=== PATIENT | female | born 1955 | race Caucasian/White ===

== ENCOUNTER 2018-10-04 09:48 | Inpatient (IN) | payer BC ==
--- NOTE | 2018-10-04 10:07 | ER Document Report ---
ED Medical Screen (RME) - General Chief Complaint: Abdominal Pain Stated Complaint: ABDOMINAL PAIN Time Seen by Provider: 10/04/18 09:59 Notes: 63-year-old female to the emergency department chief complaint of abdominal pain which has been getting worse over the last month. Located in the midline abdomen. Having bowel movements about once a week. No bloody stool. No black tarry stool. No vomiting of blood. No other major complaints at this time. Denies any medication. Denies any past medical history. Still has all of her organs. No prior abdominal surgeries. Patient does smoke. I have greeted and performed a rapid initial assessment of this patient. A comprehensive ED assessment and evaluation of the patient, analysis of test results and completion of the medical decision making process will be conducted by additional ED providers. TRAVEL OUTSIDE OF THE [place] IN LAST 30 DAYS: No - Related Data Allergies/Adverse Reactions: No Known Allergies Allergy (Verified 10/04/18 09:59) Past Medical History - Social History Frequency of alcohol use: None Drug Abuse: None Renal/ Medical History: Denies: Hx Peritoneal Dialysis Review of Systems - Review of Systems Notes: Review of systems positive for the following: Nausea, abdominal pain, weight loss Physical Exam - Vital signs Vitals: Temp Pulse Resp BP Pulse Ox 98.0 F 107 H 18 153/99 H 94 10/04/18 09:54 10/04/18 09:54 10/04/18 09:54 10/04/18 09:54 10/04/18 09:54 - Abdominal Inspection: Normal Distension: No distension Bowel sounds: Normal Tenderness: Tender - Epigastric tenderness Organomegaly: No organomegaly Course - Vital Signs Vital signs: Temp Pulse Resp BP Pulse Ox 98.0 F 107 H 18 153/99 H 94 10/04/18 09:54 10/04/18 09:54 10/04/18 09:54 10/04/18 09:54 10/04/18 09:54 Doctor's Discharge - Discharge Referrals: MAGED,NO [Primary Care Provider] - Follow up as needed
[2018-10-04] MEDS ORDERED: NORMAL SALINE 500 ML IV ONE (10:08)
[2018-10-04] MEDS ORDERED: KETOROLAC TROMETHAMINE INJ/PF 30 MG/1 ML SDV IV ONE (10:08)
[2018-10-04] MEDS ORDERED: FAMOTIDINE INJ/PF 20 MG/2 ML SDV IV ONE (10:08)
[2018-10-04] MEDS ORDERED: ONDANSETRON HCL INJ/PF 4 MG/2 ML SDV IV ONE (10:10)
[2018-10-04 10:55] LABS: ABSOLUTE EOSINOPHILS # (AUTO) 0.1 10^3/uL (0.0-0.6); ABSOLUTE LYMPHOCYTES (AUTO) 1.9 10^3/uL (0.5-4.7); ABSOLUTE MONOCYTES (AUTO) 1.4 10^3/uL (0.1-1.4); ABSOLUTE NEUT (AUTO) 7.1 10^3/uL (1.7-8.2); BASOPHILS % (AUTO) 0.4 % (0-2); EOSINOPHILS % (AUTO) 0.6 % (0-6); HEMATOCRIT 48.7 % (36.0-47.0); HEMOGLOBIN 16.3 g/dL (12.0-15.5); LYMPHOCYTES % (AUTO) 18.4 % (13-45); MEAN CORPUSCULAR HEMOGLOBIN 26.2 pg (27.0-33.4); MEAN CORPUSCULAR HGB CONC 33.5 g/dL (32.0-36.0); MEAN CORPUSCULAR VOLUME 78 fl (80-97); PLATELET COUNT 299 10^3/uL (150-450); RED BLOOD COUNT 6.22 10^6/uL (3.72-5.28); RED CELL DISTRIBUTION WIDTH 16.1 % (11.5-14.0); SEGMENTED NEUTROPHILS % (AUTO) 67.6 % (42-78); TOTAL CELLS COUNTED % (AUTO) 100 %; WHITE BLOOD COUNT 10.6 10^3/uL (4.0-10.5)
[2018-10-04 12:06] LABS: ALANINE AMINOTRANSFERASE 37 U/L (9-52); ALKALINE PHOSPHATASE 99 U/L (38-126); ANION GAP 12 (5-19); ASPARTATE AMINO TRANSFERASE 43 U/L (14-36); BILIRUBIN,DIRECT 0.4 mg/dL (0.0-0.4); BILIRUBIN,TOTAL 0.7 mg/dL (0.2-1.3); BLOOD UREA NITROGEN 13 mg/dL (7-20); CALCIUM 8.9 mg/dL (8.4-10.2); CARBON DIOXIDE 27 mmol/L (22-30); CHLORIDE 95 mmol/L (98-107); GLUCOSE 104 mg/dL (75-110); POTASSIUM 3.1 mmol/L (3.6-5.0); SODIUM 133.5 mmol/L (137-145)
[2018-10-04] MEDS ORDERED: METOCLOPRAMIDE HCL INJ/PF 10 MG/2 ML SDV IV ONE (12:28)
[2018-10-04] MEDS ORDERED: MORPHINE SULFATE 10 MG/ML INJ IV ONE (12:29)
--- NOTE | 2018-10-04 12:39 | ER Document Report ---
ED GI/ - General Chief Complaint: Abdominal Pain Stated Complaint: ABDOMINAL PAIN Time Seen by Provider: 10/04/18 09:59 Mode of Arrival: Ambulatory Information source: Patient Notes: Patient is an otherwise healthy 63-year-old female who presents to the emergency department with abdominal pain that started 6 months ago. Patient reports pain has been across her entire abdomen for 6 months with worsening significantly over the last month. Patient reports significant weight loss of at least 20-30 pounds. She reports that she is unable to hold any food down as every time she eats she vomits. Patient denies any fevers or diarrhea. States she had a normal bowel movement yesterday. Patient denies any medical history whatsoever however she states that she does not have a primary care provider and has not seen a doctor in many years. Patient denies any personal or family history of cancer. TRAVEL OUTSIDE OF THE [place] IN LAST 30 DAYS: No - Related Data Allergies/Adverse Reactions: No Known Allergies Allergy (Verified 10/04/18 09:59) Past Medical History - General Information source: Patient - Social History Smoking Status: Current Every Day Smoker Frequency of alcohol use: None Drug Abuse: None Family History: Reviewed & Not Pertinent Patient has suicidal ideation: No Patient has homicidal ideation: No - Medical History Medical History: Negative Renal/ Medical History: Denies: Hx Peritoneal Dialysis Surgical Hx: Negative - Immunizations Immunizations up to date: Yes Review of Systems - Review of Systems Constitutional: Weight loss EENT: No symptoms reported Cardiovascular: No symptoms reported Respiratory: No symptoms reported Gastrointestinal: Abdominal pain, Nausea, Vomiting Genitourinary: No symptoms reported Female Genitourinary: No symptoms reported Skin: No symptoms reported Hematologic/Lymphatic: No symptoms reported Neurological/Psychological: No symptoms reported Physical Exam - Vital signs Vitals: Temp Pulse Resp BP Pulse Ox 98.0 F 107 H 18 153/99 H 94 10/04/18 09:54 10/04/18 09:54 10/04/18 09:54 10/04/18 09:54 10/04/18 09:54 - Notes Notes: PHYSICAL EXAMINATION: GENERAL: Thin. HEAD: Atraumatic, normocephalic. EYES: Pupils equal round and reactive to light, extraocular movements intact, c onjunctiva are normal. ENT: Nares patent, oropharynx clear without exudates. Moist mucous membranes. NECK: Normal range of motion, supple without lymphadenopathy LUNGS: Breath sounds clear to auscultation bilaterally and equal. No wheezes rales or rhonchi. HEART: Regular rate and rhythm without murmurs ABDOMEN: Soft, nondistended abdomen. Generalized tenderness to palpation. Hypoactive bowel sounds. No guarding, no rebound. No masses appreciated. Female : No CVA tenderness. Musculoskeletal: Normal range of motion, no pitting or edema. No cyanosis. NEUROLOGICAL: Cranial nerves grossly intact. Normal speech, normal gait. Normal sensory, motor exams PSYCH: Normal mood, normal affect. SKIN: Warm, Dry, normal turgor, no rashes or lesions noted. Course - Re-evaluation Re-evalutation: Vital signs are stable. CBC is unremarkable. CMP with hypokalemia and hyponatremia. Patient's pain adequately managed with morphine. Patient is currently drinking oral contrast for abdomen pelvis CT. patient receiving normal saline to help correct the hyponatremia, will order potassium rider for potassium of 3.1. CT of the abdomen and pelvis with IV and oral contrast reveals a partial small bowel obstruction and a cecal mass that is possibly causing the obstruction. These findings were discussed with the patient. All of patient's questions were answered. Pain controlled with IV analgesia. Will order patient 0.5 mg of IV Ativan as patient has become very anxious regarding her health condition. Carcinoembryonic antigen was added on per the advice of Dr. Aaron. 10/04/18 17:[address] Vizcaino, general surgery for admission of this patient. 10/04/18 18:52 Dr. Vizcaino will admit the patient. I also consulted oncology and spoke to Dr. Vallejo who agrees to see the patient in the morning. - Vital Signs Vital signs: Temp Pulse Resp BP Pulse Ox 98.1 F 69 18 120/62 92 10/05/18 12:17 10/05/18 12:17 10/05/18 12:17 10/05/18 12:17 10/05/18 12:17 - Laboratory Result Diagrams: 10/05/18 06:41 10/05/18 06:41 Laboratory results interpreted by me: 10/04/18 10/04/18 10/04/18 10:25 11:40 16:00 WBC 10.6 H RBC 6.22 H Hgb 16.3 H Hct 48.7 H MCV 78 L MCH 26.2 L RDW 16.1 H Sodium 133.5 L Potassium 3.1 L Chloride 95 L AST 43 H Carcinoembryonic Ag 5.1 H Ur Leukocyte Esterase 10/04/18 16:00 WBC RBC Hgb Hct MCV MCH RDW Sodium Potassium Chloride AST Carcinoembryonic Ag Ur Leukocyte Esterase TRACE H Discharge - Discharge Clinical Impression: Hypokalemia, Hyponatremia Bowel obstruction Qualifiers: Intestinal obstruction type: unspecified Intestinal obstruction extent: unspecified extent Qualified Code(s): K56.609 - Unspecified intestinal obstruction, unspecified as to partial versus complete obstruction Abdominal pain Qualifiers: Abdominal location: unspecified location Qualified Code(s): R10.9 - Unspecified abdominal pain Abdominal mass Qualifiers: Abdominal location: unspecified location Qualified Code(s): R19.00 - Intra- abdominal and pelvic swelling, mass and lump, unspecified site Condition: Stable Disposition: ADMITTED INPATIENT Admitting Provider: Surgicalist Unit Admitted: Medical Floor
[2018-10-04] MEDS ORDERED: NORMAL SALINE 1000 ML 1,000 ML IV ONE ×4 (13:30→19:30)
--- NOTE | 2018-10-04 14:44 | RADIOLOGY REPORT (SQ) ---
EXAM DESCRIPTION: CT ABD/PELVIS WITH IV ORAL COMPLETED DATE/TIME: 10/04/2018 2:08 pm REASON FOR STUDY: abd pain, weight loss COMPARISON: None. TECHNIQUE: CT scan of the abdomen and pelvis performed using helical scanning technique with dynamic intravenous contrast injection. Oral contrast. Images reviewed with lung, soft tissue, and bone win dows. Reconstructed coronal and sagittal MPR images reviewed. Delayed images for evaluation of the ur inary system also acquired. All images stored on PACS. All CT scanners at this facility use dose modulation, iterative reconstruction, and/or weight based d osing when appropriate to reduce radiation dose to as low as reasonably achievable (ALARA). [facility]: Dose Right [facility]: CareDose [facility]: Dose Right [facility]: Teradose 4D [facility]: [employer] CONTRAST TYPE AND DOSE: contrast/concentration: Isovue 350.00 mg/ml; Total Contrast Delivered: 56.0 ml; Total Saline Delivered: 38.0 ml RENAL FUNCTION: BUN 13 creatinine 0.76 RADIATION DOSE: CT Rad equipment meets quality standard of care and radiation dose reduction techniq ues were employed. CTDIvol: 4.8 - 5.5 mGy. DLP: 527 mGy-cm.. LIMITATIONS: None. FINDINGS: LOWER CHEST: No significant findings. No nodules or infiltrates. LIVER: Normal size. No masses. No dilated ducts. SPLEEN: Normal size. No focal lesions. PANCREAS: No masses. No significant calcifications. No adjacent inflammation or peripancreatic fluid collections. Pancreatic duct not dilated. GALLBLADDER: A large dense gallstone is present. ADRENAL GLANDS: No significant masses or asymmetry. RIGHT KIDNEY AND URETER: No solid masses. No significant calcifications. No hydronephrosis or hyd roureter. LEFT KIDNEY AND URETER: No solid masses. No significant calcifications. No hydronephrosis or hydr oureter. AORTA AND VESSELS: No aneurysm. No dissection. Renal arteries, SMA, celiac without stenosis. RETROPERITONEUM: No retroperitoneal adenopathy, hemorrhage or masses. BOWEL AND PERITONEAL CAVITY: Distended fluid-filled small bowel. The cecum is distended. The rectum and distal sigmoid are distended. Cannot rule-out masslike wall thickening at the superior aspect o f the cecum. APPENDIX: Normal. PELVIS: No mass. No free fluid. Normal bladder. ABDOMINAL WALL: No masses. No hernias. BONES: No significant or acute findings. OTHER: No other significant finding. IMPRESSION: 1. Cannot exclude partial bowel obstruction secondary to a mass lesion at the superior aspect of the cecum in the ascending colon. 2. Cannot exclude an enteritis. 3. Cholelithiasis. TECHNICAL DOCUMENTATION: JOB ID: [id number] Quality ID # [id number]: Final reports with documentation of one or more dose reduction techniques (e.g., Au tomated exposure control, adjustment of the mA and/or kV according to patient size, use of iterative reconstruction technique) 2010 [employer]- All Rights Reserved Reading location - IP/workstation name: [email or web address]
[2018-10-04 16:33] LABS: APPEARANCE,URINE SLIGHTLY-CLOUDY; BILIRUBIN,URINE NEGATIVE (NEGATIVE); COLOR,URINE YELLOW; GLUCOSE, URINE NEGATIVE (NEGATIVE); KETONES,URINE NEGATIVE (NEGATIVE); LEUKOCYTE ESTERASE,URINE TRACE (NEGATIVE); NITRITE,URINE NEGATIVE (NEGATIVE); PROTEIN,URINE NEGATIVE (NEGATIVE); URINE SPECIFIC GRAVITY > 1.060; UROBILINOGEN,URINE NEGATIVE mg/dL (<2.0)
[2018-10-04] MEDS ORDERED: LORAZEPAM INJ 2 MG/1 ML VIAL IV ONE (16:44)
[2018-10-04] MEDS: POTASSI CL 20 MEQ/50 ML RIDER 20 MEQ/50 ML RTUPB IV SCH ×2 (17:52→20:20)
--- NOTE | 2018-10-04 18:47 | PDOC CONSULTATION ---
Consultation Consult Date: 10/04/18 Attending physician:: RANDY JACOBS Consult reason:: Newly noted cecal mass History of Present Illness Patient complains of: Nausea vomiting, diarrhea History of Present Illness: CLAUDETTE ELI is a 63 year old female who presents with a one-month history of severe nausea and vomiting, unable to keep anything down, prior to that she had about a 6-month history of severe diarrhea. Over that time. She is lost about 30 pounds. Here, she had CT of the abdomen pelvis done which indicates diste ntion of the small bowel, abnormality at the cecum concerning for mass, distention however also of the sigmoid and rectal area. There does not seem to be any organ involvement, no other adenopathy noted. She has not really seen physicians up to this point. It is been about 24 hours since she passed gas. It is been about 3 weeks since her last bowel movement. Past Medical History Medical History: None - [id number] Past Surgical History Past Surgical History: Reports: None Social History Smoking Status: Current Every Day Smoker Cigarettes Packs Per Day: 1 Number of Years Smokin Frequency of Alcohol Use: None Hx Recreational Drug Use: No Hx Prescription Drug Abuse: No - Advance Directive Resuscitation Status: Full Code Family History Family History: None Parental Family History Reviewed: Yes Children Family History Reviewed: Yes Sibling(s) Family History Reviewed.: Yes Medication/Allergy Home Medications: No Home Medications 10/04/18 Allergies/Adverse Reactions: No Known Allergies Allergy (Verified 10/04/18 09:59) Review of Systems Constitutional: PRESENT: anorexia, fatigue, weakness, weight loss Cardiovascular: ABSENT: chest pain, dyspnea on exertion, edema, orthropnea, palpitations Gastrointestinal: PRESENT: bloating, nausea, vomiting Genitourinary: ABSENT: dysuria, hematuria Musculoskeletal: ABSENT: joint swelling Neurological: ABSENT: abnormal gait, abnormal speech, confusion, dizziness, focal weakness, syncope Psychiatric: ABSENT: anxiety, depression, homidical ideation, suicidal ideation Physical Exam Vital Signs: Temp Pulse Resp BP Pulse Ox 98.0 F 107 H 24 H 156/98 H 96 10/04/18 09:54 10/04/18 09:54 10/04/18 17:33 10/04/18 17:33 10/04/18 17:33 Intake & Output 10/03/18 10/04/18 10/05/18 06:59 06:59 06:59 Intake Total 1500 Balance 1500 Weight 49 kg General appearance: PRESENT: no acute distress Head exam: PRESENT: atraumatic Mouth exam: PRESENT: dry mucosa Neck exam: ABSENT: carotid bruit, JVD, lymphadenopathy, thyromegaly Respiratory exam: PRESENT: clear to auscultation dianna. ABSENT: rales, rhonchi, wheezes Cardiovascular exam: PRESENT: RRR. ABSENT: diastolic murmur, rubs, systolic murmur GI/Abdominal exam: PRESENT: diminished bowel sounds Rectal exam: PRESENT: deferred Musculoskeletal exam: PRESENT: ambulatory Neurological exam: PRESENT: alert, awake, oriented to person, oriented to place, oriented to time, oriented to situation, CN II-XII grossly intact. ABSENT: motor sensory deficit Skin exam: PRESENT: dry Results Laboratory Results: 10/04/18 10:25 10/04/18 11:40 10/04/18 10/04/18 10/04/18 10:25 10:25 11:40 WBC 10.6 H RBC 6.22 H Hgb 16.3 H Hct 48.7 H MCV 78 L MCH 26.2 L MCHC 33.5 RDW 16.1 H Plt Count 299 Seg Neutrophils % 67.6 Lymphocytes % 18.4 Monocytes % 13.0 Eosinophils % 0.6 Basophils % 0.4 Absolute Neutrophils 7.1 Absolute Lymphocytes 1.9 Absolute Monocytes 1.4 Absolute Eosinophils 0.1 Absolute Basophils 0.0 Sodium Cancelled 133.5 L Potassium Cancelled 3.1 L Chloride Cancelled 95 L Carbon Dioxide Cancelled 27 Anion Gap Cancelled 12 BUN Cancelled 13 Creatinine Cancelled 0.76 Est GFR ( Amer) Cancelled > 60 Est GFR (Non-Af Amer) Cancelled > 60 Glucose Cancelled 104 Calcium Cancelled 8.9 Total Bilirubin Cancelled 0.7 AST Cancelled 43 H ALT Cancelled 37 Alkaline Phosphatase Cancelled 99 Total Protein Cancelled 7.0 Albumin Cancelled 4.0 Lipase Cancelled 49.0 Urine Color Urine Appearance Urine pH Ur Specific [place] Urine Protein Urine Glucose (UA) Urine Ketones Urine Blood Urine Nitrite Ur Leukocyte Esterase Urine WBC (Auto) Urine RBC (Auto) 10/04/18 16:00 WBC RBC Hgb Hct MCV MCH MCHC RDW Plt Count Seg Neutrophils % Lymphocytes % Monocytes % Eosinophils % Basophils % Absolute Neutrophils Absolute Lymphocytes Absolute Monocytes Absolute Eosinophils Absolute Basophils Sodium Potassium Chloride Carbon Dioxide Anion Gap BUN Creatinine Est GFR ( Amer) Est GFR (Non-Af Amer) Glucose Calcium Total Bilirubin AST ALT Alkaline Phosphatase Total Protein Albumin Lipase Urine Color YELLOW Urine Appearance SLIGHTLY-CLOUDY Urine pH 7.0 Ur Specific [place] > 1.060 Urine Protein NEGATIVE Urine Glucose (UA) NEGATIVE Urine Ketones NEGATIVE Urine Blood NEGATIVE Urine Nitrite NEGATIVE Ur Leukocyte Esterase TRACE H Urine WBC (Auto) 5 Urine RBC (Auto) 5 Impressions: Abdomen/Pelvis CT 10/04/18 00:00 IMPRESSION: 1. Cannot exclude partial bowel obstruction secondary to a mass lesion at the superior aspect of the cecum in the ascending colon. 2. Cannot exclude an enteritis. 3. Cholelithiasis. 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 Ultimately she would benefit from colonoscopy with biopsy. After hydration I will order CT of the chest to complete other staging and we would need to send a CEA as well. - Time Time Spent: Greater than 70 Minutes - Inpatient Certification Based on my medical assessment, after consideration of the patient's comorbidities, presenting symptoms, or acuity I expect that the services needed warrant INPATIENT care.: Yes I certify that my determination is in accordance with my understanding of Medicare's requirements for reasonable and necessary INPATIENT services [42 CFR 412.3e].: Yes Medical Necessity: Need For IV Fluids, Need for Surgery
[2018-10-04] MEDS ORDERED: ONDANSETRON HCL INJ/PF 4 MG/2 ML SDV IV PRN (19:17)
--- NOTE | 2018-10-04 19:17 | PDOC H&P ---
History of Present Illness Admission Date/PCP: 10/04/18 Patient complains of: weight loss and abdominal pain History of Present Illness: CLAUDETTE ELI is a 63 year old female with a 1-2 months of weight loss about 30 punds, porr appetite, recent onset of abdominal pain. She presented to clinic w ith above symptoms and CT scan A/P was done with large partially obstructing mass of ascending colon with partially distended small bowel. She no other medical issues. The patient denies hematochetia and her last bowel movement was 3 weeks ago. Past Surgical History Past Surgical History: Reports: None Social History Smoking Status: Current Every Day Smoker Cigarettes Packs Per Day: 1 Number of Years Smokin Frequency of Alcohol Use: None Hx Recreational Drug Use: No Hx Prescription Drug Abuse: No - Advance Directive Resuscitation Status: Full Code Family History Family History: Reviewed & Not Pertinent Parental Family History Reviewed: No Children Family History Reviewed: No Sibling(s) Family History Reviewed.: No Medication/Allergy Home Medications: No Home Medications 10/04/18 Allergies/Adverse Reactions: No Known Allergies Allergy (Verified 10/04/18 09:59) Physical Exam Vital Signs: Temp Pulse Resp BP Pulse Ox 98.0 F 107 H 24 H 156/98 H 96 10/04/18 09:54 10/04/18 09:54 10/04/18 17:33 10/04/18 17:33 10/04/18 17:33 Intake & Output 10/03/18 10/04/18 10/05/18 06:59 06:59 06:59 Intake Total 1500 Balance 1500 Weight 49 kg General appearance: PRESENT: no acute distress Head exam: PRESENT: atraumatic Eye exam: PRESENT: EOMI Mouth exam: PRESENT: dry mucosa, neck supple Teeth exam: PRESENT: poor dentation Neck exam: PRESENT: full ROM Respiratory exam: PRESENT: wheezes Cardiovascular exam: PRESENT: RRR GI/Abdominal exam: PRESENT: distended - minimally, soft, tenderness - diffuse upper abdominal Rectal exam: PRESENT: deferred Extremities exam: PRESENT: full ROM Musculoskeletal exam: PRESENT: full ROM Neurological exam: PRESENT: alert, altered Skin exam: PRESENT: warm Results Laboratory Results: 10/04/18 10:25 10/04/18 11:40 10/04/18 10/04/18 10/04/18 10:25 10:25 11:40 WBC 10.6 H RBC 6.22 H Hgb 16.3 H Hct 48.7 H MCV 78 L MCH 26.2 L MCHC 33.5 RDW 16.1 H Plt Count 299 Seg Neutrophils % 67.6 Lymphocytes % 18.4 Monocytes % 13.0 Eosinophils % 0.6 Basophils % 0.4 Absolute Neutrophils 7.1 Absolute Lymphocytes 1.9 Absolute Monocytes 1.4 Absolute Eosinophils 0.1 Absolute Basophils 0.0 Sodium Cancelled 133.5 L Potassium Cancelled 3.1 L Chloride Cancelled 95 L Carbon Dioxide Cancelled 27 Anion Gap Cancelled 12 BUN Cancelled 13 Creatinine Cancelled 0.76 Est GFR ( Amer) Cancelled > 60 Est GFR (Non-Af Amer) Cancelled > 60 Glucose Cancelled 104 Calcium Cancelled 8.9 Total Bilirubin Cancelled 0.7 AST Cancelled 43 H ALT Cancelled 37 Alkaline Phosphatase Cancelled 99 Total Protein Cancelled 7.0 Albumin Cancelled 4.0 Lipase Cancelled 49.0 Urine Color Urine Appearance Urine pH Ur Specific [place] Urine Protein Urine Glucose (UA) Urine Ketones Urine Blood Urine Nitrite Ur Leukocyte Esterase Urine WBC (Auto) Urine RBC (Auto) 10/04/18 16:00 WBC RBC Hgb Hct MCV MCH MCHC RDW Plt Count Seg Neutrophils % Lymphocytes % Monocytes % Eosinophils % Basophils % Absolute Neutrophils Absolute Lymphocytes Absolute Monocytes Absolute Eosinophils Absolute Basophils Sodium Potassium Chloride Carbon Dioxide Anion Gap BUN Creatinine Est GFR ( Amer) Est GFR (Non-Af Amer) Glucose Calcium Total Bilirubin AST ALT Alkaline Phosphatase Total Protein Albumin Lipase Urine Color YELLOW Urine Appearance SLIGHTLY-CLOUDY Urine pH 7.0 Ur Specific [place] > 1.060 Urine Protein NEGATIVE Urine Glucose (UA) NEGATIVE Urine Ketones NEGATIVE Urine Blood NEGATIVE Urine Nitrite NEGATIVE Ur Leukocyte Esterase TRACE H Urine WBC (Auto) 5 Urine RBC (Auto) 5 Impressions: Abdomen/Pelvis CT 10/04/18 00:00 IMPRESSION: 1. Cannot exclude partial bowel obstruction secondary to a mass lesion at the superior aspect of the cecum in the ascending colon. 2. Cannot exclude an enteritis. 3. Cholelithiasis. Assessment & Plan - Diagnosis (1) Weight loss Is this a current diagnosis for this admission?: Yes (2) Cecum mass Is this a current diagnosis for this admission?: Yes Plan: A/ Right colon mass partially obstructing the small bowel weight loss 30 pounds during 1-2 months severe constipation, last bowel movement 3 weeks ago hypokalemia P/ Admit NPO NGT Multiple Fleet enemas Colonoscopy in AM followed by right hemicolectomy and central line placement tomorrow Replace K EKG Procedures, risks, benefits, complications discussed with the patient, her questions were answered and she decided to proceed
[2018-10-04] MEDS ORDERED: PHARMACY COMMUNICATION ORDER MC NR (19:30)
[2018-10-04] MEDS: FAMOTIDINE INJ/PF 20 MG/2 ML SDV IV SCH (22:07)
[2018-10-04] MEDS: NA PHOS,M-B/NA PHOS,DI-BA (ADULT) 133 ML ENEMA PR SCH ×2 (23:05→23:24)
[2018-10-05 00:32] LABS: ANION GAP 5 (5-19); BLOOD UREA NITROGEN 11 mg/dL (7-20); CALCIUM 7.8 mg/dL (8.4-10.2); CARBON DIOXIDE 23 mmol/L (22-30); CHLORIDE 103 mmol/L (98-107); GLUCOSE 93 mg/dL (75-110); POTASSIUM 3.7 mmol/L (3.6-5.0); SODIUM 131.2 mmol/L (137-145)
[2018-10-05] MEDS: NA PHOS,M-B/NA PHOS,DI-BA (ADULT) 133 ML ENEMA PR SCH ×3 (00:46→03:49)
[2018-10-05] MEDS: POTASSIUM CHLORIDE 20 MEQ/50 ML RTU IV SCH ×2 (01:56→03:49)
[2018-10-05] MEDS ORDERED: CEFOXITIN SODIUM 2 GM in DEXTROSE 5%-WATER 100 ML IV PRN (05:00)
[2018-10-05 06:56] LABS: ABSOLUTE EOSINOPHILS # (AUTO) 0.1 10^3/uL (0.0-0.6); ABSOLUTE LYMPHOCYTES (AUTO) 1.4 10^3/uL (0.5-4.7); ABSOLUTE NEUT (AUTO) 3.4 10^3/uL (1.7-8.2); BASOPHILS % (AUTO) 0.7 % (0-2); EOSINOPHILS % (AUTO) 1.5 % (0-6); HEMATOCRIT 37.7 % (36.0-47.0); LYMPHOCYTES % (AUTO) 23.8 % (13-45); MEAN CORPUSCULAR HEMOGLOBIN 26.5 pg (27.0-33.4); MEAN CORPUSCULAR HGB CONC 33.9 g/dL (32.0-36.0); MEAN CORPUSCULAR VOLUME 78 fl (80-97); MONOCYTES % (AUTO) 16.5 % (3-13); PLATELET COUNT 171 10^3/uL (150-450); RED BLOOD COUNT 4.83 10^6/uL (3.72-5.28); RED CELL DISTRIBUTION WIDTH 15.4 % (11.5-14.0); SEGMENTED NEUTROPHILS % (AUTO) 57.5 % (42-78); TOTAL CELLS COUNTED % (AUTO) 100 %
[2018-10-05 06:57] LABS: HEMOGLOBIN 12.8 g/dL (12.0-15.5)
[2018-10-05 07:10] LABS: ANION GAP 5 (5-19); BLOOD UREA NITROGEN 9 mg/dL (7-20); CARBON DIOXIDE 22 mmol/L (22-30); CHLORIDE 109 mmol/L (98-107); GLUCOSE 85 mg/dL (75-110); POTASSIUM 4.4 mmol/L (3.6-5.0); SODIUM 135.8 mmol/L (137-145)
[2018-10-05] MEDS ORDERED: SUCCINYLCHOLINE CHLORIDE INJ 200 MG/10 ML VIAL ONE (08:11)
[2018-10-05] MEDS ORDERED: PHENYLEPHRINE HCL INJ/PF 10 MG/1 ML SDV ONE (08:11)
[2018-10-05] MEDS ORDERED: DEXAMETHASONE SOD PHOSPHATE INJ 4 MG/1 ML VIAL ONE (08:11)
[2018-10-05] MEDS ORDERED: ONDANSETRON HCL INJ/PF 4 MG/2 ML SDV ONE (08:11)
[2018-10-05] MEDS ORDERED: ROCURONIUM BROMIDE INJ 50 MG/5 ML VIAL IV ONE (08:11)
--- NOTE | 2018-10-05 08:18 | PDOC PROGRESS REPORT ---
Subjective Progress Note for:: 10/05/18 Subjective:: Patient feeling OK. She is anxious to have surgery done. No new questions today. Reason For Visit: RIGHT COLON CANCER Physical Exam Vital Signs: Temp Pulse Resp BP Pulse Ox 98.5 F 68 17 118/66 98 10/05/18 03:55 10/05/18 03:55 10/05/18 03:55 10/05/18 03:55 10/05/18 03:55 Intake & Output 10/04/18 10/05/18 10/06/18 06:59 06:59 06:59 Intake Total 1597 Balance 1597 Weight 19.8 kg General appearance: PRESENT: well-developed, well-nourished Head exam: PRESENT: normocephalic Respiratory exam: PRESENT: unlabored Extremities exam: ABSENT: pedal edema Neurological exam: PRESENT: alert, awake, oriented to person, oriented to place, oriented to time, oriented to situation Psychiatric exam: PRESENT: appropriate affect Skin exam: PRESENT: normal color Results Laboratory Results: 10/05/18 06:41 10/05/18 06:41 10/04/18 10/04/18 10/04/18 10:25 10:25 11:40 WBC 10.6 H RBC 6.22 H Hgb 16.3 H Hct 48.7 H MCV 78 L MCH 26.2 L MCHC 33.5 RDW 16.1 H Plt Count 299 Seg Neutrophils % 67.6 Lymphocytes % 18.4 Monocytes % 13.0 Eosinophils % 0.6 Basophils % 0.4 Absolute Neutrophils 7.1 Absolute Lymphocytes 1.9 Absolute Monocytes 1.4 Absolute Eosinophils 0.1 Absolute Basophils 0.0 Sodium Cancelled 133.5 L Potassium Cancelled 3.1 L Chloride Cancelled 95 L Carbon Dioxide Cancelled 27 Anion Gap Cancelled 12 BUN Cancelled 13 Creatinine Cancelled 0.76 Est GFR ( Amer) Cancelled > 60 Est GFR (Non-Af Amer) Cancelled > 60 Glucose Cancelled 104 Calcium Cancelled 8.9 Total Bilirubin Cancelled 0.7 AST Cancelled 43 H ALT Cancelled 37 Alkaline Phosphatase Cancelled 99 Total Protein Cancelled 7.0 Albumin Cancelled 4.0 Lipase Cancelled 49.0 Urine Color Urine Appearance Urine pH Ur Specific [place] Urine Protein Urine Glucose (UA) Urine Ketones Urine Blood Urine Nitrite Ur Leukocyte Esterase Urine WBC (Auto) Urine RBC (Auto) Blood Type Antibody Screen 10/04/18 10/04/18 10/05/18 16:00 20:00 00:02 WBC RBC Hgb Hct MCV MCH MCHC RDW Plt Count Seg Neutrophils % Lymphocytes % Monocytes % Eosinophils % Basophils % Absolute Neutrophils Absolute Lymphocytes Absolute Monocytes Absolute Eosinophils Absolute Basophils Sodium 131.2 L Potassium 3.7 Chloride 103 Carbon Dioxide 23 Anion Gap 5 BUN 11 Creatinine 0.56 Est GFR ( Amer) > 60 Est GFR (Non-Af Amer) > 60 Glucose 93 Calcium 7.8 L Total Bilirubin AST ALT Alkaline Phosphatase Total Protein Albumin Lipase Urine Color YELLOW Urine Appearance SLIGHTLY-CLOUDY Urine pH 7.0 Ur Specific Rock[place] > 1.060 Urine Protein NEGATIVE Urine Glucose (UA) NEGATIVE Urine Ketones NEGATIVE Urine Blood NEGATIVE Urine Nitrite NEGATIVE Ur Leukocyte Esterase TRACE H Urine WBC (Auto) 5 Urine RBC (Auto) 5 Blood Type O POSITIVE Antibody Screen NEGATIVE 10/05/18 10/05/18 06:41 06:41 WBC 6.0 RBC 4.83 Hgb 12.8 D Hct 37.7 MCV 78 L MCH 26.5 L MCHC 33.9 RDW 15.4 H Plt Count 171 Seg Neutrophils % 57.5 Lymphocytes % 23.8 Monocytes % 16.5 H Eosinophils % 1.5 Basophils % 0.7 Absolute Neutrophils 3.4 Absolute Lymphocytes 1.4 Absolute Monocytes 1.0 Absolute Eosinophils 0.1 Absolute Basophils 0.0 Sodium 135.8 L Potassium 4.4 Chloride 109 H Carbon Dioxide 22 Anion Gap 5 BUN 9 Creatinine 0.59 Est GFR ( Amer) > 60 Est GFR (Non-Af Amer) > 60 Glucose 85 Calcium 8.0 L Total Bilirubin AST ALT Alkaline Phosphatase Total Protein Albumin Lipase Urine Color Urine Appearance Urine pH Ur Specific [place] Urine Protein Urine Glucose (UA) Urine Ketones Urine Blood Urine Nitrite Ur Leukocyte Esterase Urine WBC (Auto) Urine RBC (Auto) Blood Type Antibody Screen Impressions: Abdomen/Pelvis CT 10/04/18 00:00 IMPRESSION: 1. Cannot exclude partial bowel obstruction secondary to a mass lesion at the superior aspect of the cecum in the ascending colon. 2. Cannot exclude an enteritis. 3. Cholelithiasis. Status: Image reviewed by me Assessment & Plan - Diagnosis (1) Cecum mass Is this a current diagnosis for this admission?: Yes Plan: For colonoscopy today with possible NG tube placement and central line. Her CEA was not significantly elevated. CT chest has been ordered. (2) Anemia Qualifiers: Anemia type: unspecified type Qualified Code(s): D64.9 - Anemia, unspecified Is this a current diagnosis for this admission?: Yes Plan: Her HGB dropped with hydration. She has a microcytosis. I suspect there is some iron deficiency due to chronic blood loss. I will order anemia panel today. Continue to monitor CBC. - Plan Summary Plan Summary: Patient was discussed with Dr. Vizcaino. All of patient's questions were answered. Will continue to follow.
[2018-10-05] MEDS: MORPHINE SULFATE 10 MG/ML INJ IV PRN (08:21)
[2018-10-05 08:46] LABS: ABSOLUTE RETICS # 0.046 10^6/uL (0.028-0.122); RETICULOCYTE COUNT (AUTO) 0.94 % (0.66-2.85)
[2018-10-05 09:03] LABS: IRON(TIBC) 33.4 ug/dL (37-170)
--- NOTE | 2018-10-05 09:24 | EKG REPORT ---
SEVERITY:- ABNORMAL ECG - SINUS RHYTHM NONSPECIFIC T ABNORMALITIES, ANTERIOR LEADS : Confirmed by: Bj Gonzalez 05-Oct-2018 09:22:16
[2018-10-05] MEDS: FAMOTIDINE INJ/PF 20 MG/2 ML SDV IV SCH ×3 (09:26→22:46)
[2018-10-05] MEDS ORDERED: CEFOXITIN 1 GM/D5W RTU 1 GM/50 ML RTUPB IV PRN (11:00)
[2018-10-05] MEDS ORDERED: ALBUTEROL SULFATE 0.083% NEB 2.5 MG/3 ML AMPUL NEB ONE (13:01)
[2018-10-05] MEDS ORDERED: EPHEDRINE SULFATE INJ 50 MG/1 ML AMPULE ONE (13:33)
[2018-10-05] MEDS ORDERED: MIDAZOLAM 2 MG/2 ML INJ ONE (13:33)
[2018-10-05] MEDS ORDERED: FENTANYL CITRATE INJ/PF 250 MCG/5 ML AMPULE ONE (13:33)
[2018-10-05] MEDS ORDERED: FENTANYL CITRATE INJ/PF 100 MCG/2 ML AMPUL ONE ×2 (13:34→14:51)
[2018-10-05] MEDS ORDERED: PROPOFOL INJ 200 MG/20 ML VIAL IV ONE (13:34)
[2018-10-05] MEDS ORDERED: HYDROMORPHONE HCL INJ/PF 2 MG/ML AMPULE ONE (13:34)
--- NOTE | 2018-10-05 14:57 | RADIOLOGY REPORT (SQ) ---
EXAM DESCRIPTION: CHEST SINGLE VIEW COMPLETED DATE/TIME: 10/05/2018 2:44 pm REASON FOR STUDY: STAT PORTABLE IN OR 1 FOR LINE PLCMT COMPARISON: None. EXAM PARAMETERS: NUMBER OF VIEWS: One view. TECHNIQUE: Single frontal radiographic view of the chest acquired. RADIATION DOSE: NA LIMITATIONS: None. FINDINGS: LUNGS AND PLEURA: No opacities, masses or pneumothorax. No pleural effusion. MEDIASTINUM AND HILAR STRUCTURES: No masses. Contour normal. HEART AND VASCULAR STRUCTURES: Heart normal in size. Normal vasculature. BONES: No acute findings. HARDWARE: Central line on the left side with the tip at the level of the superior vena cava. Tip of the NG tube at the level of the gastroesophageal junction. Tip of the endotracheal tube 3 cm proxima l to the tre. OTHER: No other significant finding. IMPRESSION: 1. LIFE LINES DESCRIBED. ADVANCEMENT OF THE NG TUBE BY APPROXIMATELY 5 CM WOULD IMPROVE POSITIONI NG. 2. NO PNEUMOTHORAX AFTER CENTRAL LINE PLACEMENT. TECHNICAL DOCUMENTATION: JOB ID: [id number] [employer]- All Rights Reserved Reading location - IP/workstation name: [facility]
[2018-10-05] MEDS ORDERED: BUPIVACAINE HCL 0.5%-EPI 1:200000 INJ/PF 30 ML VIAL ONE (15:40)
[2018-10-05] MEDS ORDERED: ACETAMINOPHEN 1,000 MG/100 ML RTUPB IV ONE (15:41)
[2018-10-05] MEDS ORDERED: SUGAMMADEX SODIUM 200 MG/2 ML SDV IV ONE (17:14)
[2018-10-05] MEDS ORDERED: PROMETHAZINE HCL INJ 25 MG/1 ML VIAL IV PRN (18:50)
[2018-10-05] MEDS ORDERED: DIPHENHYDRAMINE HCL 50 MG/ML VIAL IV PRN (18:50)
[2018-10-05] MEDS ORDERED: FENTANYL CITRATE INJ/PF 100 MCG/2 ML AMPUL IV PRN ×3 (18:50)
[2018-10-05] MEDS ORDERED: MEPERIDINE HCL/PF INJ 25 MG/1 ML DISP.SYRIN IV PRN (18:50)
--- NOTE | 2018-10-05 19:22 | RADIOLOGY REPORT (SQ) ---
EXAM DESCRIPTION: CHEST SINGLE VIEW COMPLETED DATE/TIME: 10/05/2018 7:01 pm REASON FOR STUDY: s/p left attempted subclavian CVL COMPARISON: None. EXAM PARAMETERS: NUMBER OF VIEWS: One view. TECHNIQUE: Single frontal radiographic view of the chest acquired. RADIATION DOSE: NA LIMITATIONS: None. FINDINGS: LUNGS AND PLEURA: No opacities, masses or pneumothorax. No pleural effusion. MEDIASTINUM AND HILAR STRUCTURES: No masses. Contour normal. HEART AND VASCULAR STRUCTURES: Heart normal in size. Normal vasculature. BONES: No acute findings. HARDWARE: Left internal jugular catheter. NG tube extends to the stomach. OTHER: There is some free air beneath the diaphragms in this postsurgical patient. IMPRESSION: NO ACUTE RADIOGRAPHIC FINDING IN THE CHEST. TECHNICAL DOCUMENTATION: JOB ID: [id number] [employer]- All Rights Reserved Reading location - IP/workstation name: [email or web address]
--- NOTE | 2018-10-05 19:23 | Operative Report ---
Nonrecallable Operative Report DATE OF SURGERY: 10/05/18 PREOPERATIVE DIAGNOSIS: right colon mass, weight loss, severe constipation POSTOPERATIVE DIAGNOSIS: same OPERATION: 1) attempted Left subclavian vein CVl placment. 2) Left IJ vein CVL placement. 3) colonoscopy to right colon mass. 4) right hemicolectomy SURGEON: CYNDIE HERRERA ANESTHESIA: GA - plus 30 mL 0.5% marcaine with epinephrine TISSUE REMOVED OR ALTERED: right hemicolectomy specimen COMPLICATIONS: none ESTIMATED BLOOD LOSS: < 50 mL INTRAOPERATIVE FINDINGS: large tumoral mass right ascending colon
[2018-10-05] MEDS ORDERED: GLUCAGON,HUMAN RECOMB 1 MG INJ SUBCUT PRN (19:29)
[2018-10-05] MEDS ORDERED: DEXTROSE 50%-WATER 25 GM/50 ML DISP.SYRIN IV PRN ×2 (19:29)
[2018-10-05] MEDS ORDERED: DEXTROSE 40% GEL 15 GM TUBE PO PRN ×2 (19:29)
[2018-10-05] MEDS: ACETAMINOPHEN 1,000 MG/100 ML RTUPB IV SCH (22:38)
[2018-10-05] MEDS: CEFOXITIN 1 GM/D5W RTU 1 GM/50 ML RTUPB IV SCH (23:38)
[2018-10-06] MEDS: MORPHINE SULFATE 10 MG/ML INJ IV PRN ×2 (03:47→06:50)
[2018-10-06] MEDS: CEFOXITIN 1 GM/D5W RTU 1 GM/50 ML RTUPB IV SCH ×3 (06:33→22:10)
[2018-10-06 07:17] LABS: ABSOLUTE LYMPHOCYTES (AUTO) 1.3 10^3/uL (0.5-4.7); ABSOLUTE MONOCYTES (AUTO) 1.1 10^3/uL (0.1-1.4); BASOPHILS % (AUTO) 0.1 % (0-2); EOSINOPHILS % (AUTO) 0.1 % (0-6); HEMATOCRIT 35.5 % (36.0-47.0); HEMOGLOBIN 11.9 g/dL (12.0-15.5); LYMPHOCYTES % (AUTO) 10.1 % (13-45); MEAN CORPUSCULAR HEMOGLOBIN 26.2 pg (27.0-33.4); MEAN CORPUSCULAR HGB CONC 33.6 g/dL (32.0-36.0); MEAN CORPUSCULAR VOLUME 78 fl (80-97); MONOCYTES % (AUTO) 8.9 % (3-13); PLATELET COUNT 172 10^3/uL (150-450); RED BLOOD COUNT 4.55 10^6/uL (3.72-5.28); RED CELL DISTRIBUTION WIDTH 15.8 % (11.5-14.0); SEGMENTED NEUTROPHILS % (AUTO) 80.8 % (42-78); TOTAL CELLS COUNTED % (AUTO) 100 %
[2018-10-06 07:27] LABS: WHITE BLOOD COUNT 12.4 10^3/uL (4.0-10.5)
[2018-10-06 07:32] LABS: BLOOD UREA NITROGEN 8 mg/dL (7-20); CALCIUM 7.9 mg/dL (8.4-10.2); CHLORIDE 108 mmol/L (98-107); GLUCOSE 126 mg/dL (75-110)
[2018-10-06 07:38] LABS: CARBON DIOXIDE 25 mmol/L (22-30); SODIUM 134.4 mmol/L (137-145)
[2018-10-06 07:50] LABS: ANION GAP 1 (5-19)
--- NOTE | 2018-10-06 08:38 | PDOC PROGRESS REPORT ---
Subjective Progress Note for:: 10/06/18 Subjective:: Status post surgery, patient doing okay this morning would like to know when the NG tube can come out. Reason For Visit: RIGHT COLON CANCER Physical Exam Vital Signs: Temp Pulse Resp BP Pulse Ox 98.1 F 88 16 107/59 L 94 10/06/18 05:00 10/06/18 05:00 10/06/18 05:00 10/06/18 05:00 10/06/18 05:00 Intake & Output 10/05/18 10/06/18 10/07/18 06:59 06:59 06:59 Intake Total 1597 6650 45 Output Total 1260 Balance 1597 5390 45 Weight 19.8 kg 52 kg General appearance: PRESENT: no acute distress, well-developed, well-nourished Head exam: PRESENT: atraumatic, normocephalic Eye exam: PRESENT: conjunctiva pink, EOMI, PERRLA. ABSENT: scleral icterus Ear exam: PRESENT: normal external ear exam Mouth exam: PRESENT: moist, tongue midline Neck exam: ABSENT: carotid bruit, JVD, lymphadenopathy, thyromegaly Respiratory exam: PRESENT: clear to auscultation dianna. ABSENT: rales, rhonchi, wheezes Cardiovascular exam: PRESENT: RRR. ABSENT: diastolic murmur, rubs, systolic murmur Pulses: PRESENT: normal dorsalis pedis pul Vascular exam: PRESENT: normal capillary refill GI/Abdominal exam: PRESENT: normal bowel sounds, soft. ABSENT: distended, guarding, mass, organolmegaly, rebound, tenderness Rectal exam: PRESENT: deferred Extremities exam: PRESENT: full ROM. ABSENT: calf tenderness, clubbing, pedal edema Neurological exam: PRESENT: alert, awake, oriented to person, oriented to place, oriented to time, oriented to situation, CN II-XII grossly intact. ABSENT: motor sensory deficit Psychiatric exam: PRESENT: appropriate affect, normal mood. ABSENT: homicidal ideation, suicidal ideation Skin exam: PRESENT: dry, intact, warm. ABSENT: cyanosis, rash Results Laboratory Results: 10/06/18 06:40 10/06/18 06:40 10/05/18 10/05/18 10/06/18 06:41 06:41 06:40 WBC 12.4 H D RBC 4.55 Hgb 11.9 L Hct 35.5 L MCV 78 L MCH 26.2 L MCHC 33.6 RDW 15.8 H Plt Count 172 Seg Neutrophils % 80.8 H Lymphocytes % 10.1 L Monocytes % 8.9 Eosinophils % 0.1 Basophils % 0.1 Absolute Neutrophils 10.0 H Absolute Lymphocytes 1.3 Absolute Monocytes 1.1 Absolute Eosinophils 0.0 Absolute Basophils 0.0 Retic Count (auto) 0.94 Absolute Retic 0.046 Sodium Potassium Chloride Carbon Dioxide Anion Gap BUN Creatinine Est GFR ( Amer) Est GFR (Non-Af Amer) Glucose Calcium Iron 33.4 L TIBC 295 % Saturation 11 Ferritin 18.90 Vitamin B12 473.0 Folate 11.00 10/06/18 06:40 WBC RBC Hgb Hct MCV MCH MCHC RDW Plt Count Seg Neutrophils % Lymphocytes % Monocytes % Eosinophils % Basophils % Absolute Neutrophils Absolute Lymphocytes Absolute Monocytes Absolute Eosinophils Absolute Basophils Retic Count (auto) Absolute Retic Sodium 134.4 L Potassium 4.0 Chloride 108 H Carbon Dioxide 25 Anion Gap 1 L BUN 8 Creatinine 0.56 Est GFR ( Amer) > 60 Est GFR (Non-Af Amer) > 60 Glucose 126 H Calcium 7.9 L Iron TIBC % Saturation Ferritin Vitamin B12 Folate Impressions: Abdomen/Pelvis CT 10/04/18 00:00 IMPRESSION: 1. Cannot exclude partial bowel obstruction secondary to a mass lesion at the superior aspect of the cecum in the ascending colon. 2. Cannot exclude an enteritis. 3. Cholelithiasis. Chest X-Ray 10/05/18 00:00 IMPRESSION: NO ACUTE RADIOGRAPHIC FINDING IN THE CHEST. Assessment & Plan - Diagnosis (1) Cecum mass Is this a current diagnosis for this admission?: Yes Plan: Concerning for primary colon cancer, status post colectomy, awaiting pathology, will follow closely. - Time Time Spent with patient: 35 or more minutes
--- NOTE | 2018-10-06 09:19 | PDOC PROGRESS REPORT ---
Subjective Progress Note for:: 10/06/18 Subjective:: No complaints, pain reasonably tolerated; nasogastric tube and Pickens catheter still in position Reason For Visit: RIGHT COLON CANCER Physical Exam Vital Signs: Temp Pulse Resp BP Pulse Ox 98.1 F 88 16 107/59 L 94 10/06/18 05:00 10/06/18 05:00 10/06/18 05:00 10/06/18 05:00 10/06/18 05:00 Intake & Output 10/05/18 10/06/18 10/07/18 06:59 06:59 06:59 Intake Total 1597 6650 45 Output Total 1260 Balance 1597 5390 45 Weight 19.8 kg 52 kg General appearance: PRESENT: no acute distress, other - Minimal drainage from NG tube GI/Abdominal exam: PRESENT: other - Soft, appropriate incisional tenderness. No distention, no peritoneal signs Results Laboratory Results: 10/06/18 06:40 10/06/18 06:40 10/05/18 10/06/18 10/06/18 06:41 06:40 06:40 WBC 12.4 H D RBC 4.55 Hgb 11.9 L Hct 35.5 L MCV 78 L MCH 26.2 L MCHC 33.6 RDW 15.8 H Plt Count 172 Seg Neutrophils % 80.8 H Lymphocytes % 10.1 L Monocytes % 8.9 Eosinophils % 0.1 Basophils % 0.1 Absolute Neutrophils 10.0 H Absolute Lymphocytes 1.3 Absolute Monocytes 1.1 Absolute Eosinophils 0.0 Absolute Basophils 0.0 Sodium 134.4 L Potassium 4.0 Chloride 108 H Carbon Dioxide 25 Anion Gap 1 L BUN 8 Creatinine 0.56 Est GFR ( Amer) > 60 Est GFR (Non-Af Amer) > 60 Glucose 126 H Calcium 7.9 L Iron 33.4 L TIBC 295 % Saturation 11 Ferritin 18.90 Vitamin B12 473.0 Folate 11.00 Impressions: Abdomen/Pelvis CT 10/04/18 00:00 IMPRESSION: 1. Cannot exclude partial bowel obstruction secondary to a mass lesion at the superior aspect of the cecum in the ascending colon. 2. Cannot exclude an enteritis. 3. Cholelithiasis. Chest X-Ray 10/05/18 00:00 IMPRESSION: NO ACUTE RADIOGRAPHIC FINDING IN THE CHEST. Assessment & Plan - Diagnosis (1) Cecum mass Is this a current diagnosis for this admission?: Yes Plan: Impression: Status post exploratory laparotomy, right hemicolectomy stapled anastomosis for a near obstructing right colonic carcinoma, postop day 1, doing well, no complications thus far Recommendations: 1. We will clamped and likely DC NG tube 2. Out of bed into chair 3. Start IV acetaminophen and IV Toradol, reduce narcotic needs 4. Incentive spirometer 5. May be prepared for Pickens catheter removal later today. 6. Labs reviewed; no indication for intervention
[2018-10-06] MEDS: ACETAMINOPHEN 1,000 MG/100 ML RTUPB IV SCH (10:01)
[2018-10-06] MEDS: FAMOTIDINE INJ/PF 20 MG/2 ML SDV IV SCH ×3 (10:01→22:11)
[2018-10-06] MEDS: NORMAL SALINE 1000 ML 1,000 ML IV PRN ×2 (10:07→20:54)
--- NOTE | 2018-10-06 12:31 | OPERATIVE REPORT E ---
Operative Report NAME: CLAUDETTE ELI : 1955 AGE: 63Y DATE OF SURGERY: 10/05/2018 ROOM: 210 PREOPERATIVE DIAGNOSES: 1. Partial obstructing right colon cancer. 2. Anemia. POSTOPERATIVE DIAGNOSES: 1. Partial obstructing right colon cancer. 2. Anemia. OPERATION: 1. Placement of right internal jugular venous intravenous line. 2. Colonoscopy to right colon. 3. Exploratory laparotomy. 4. Right hemicolectomy. SURGEON: CYNDIE HERRERA M.D. TEACHER OF THE DEAF/HARD OF HEARING: None. ANESTHESIA: General plus 30 mL of 0.5% Marcaine with epinephrine. URINE OUTPUT: 500 mL. ESTIMATED BLOOD LOSS: Less than 50 mL. COMPLICATIONS: None. FLUIDS: 2000 mL. DRAINS: None. INDICATIONS AND FINDINGS: This is a 63-year-old female who presented to the emergency room complaining of abdominal pain, distention, constipation for almost 1 month, severe weight loss of about 60 pounds in 3 months. CAT scan of the abdomen and pelvis was done revealing a large mass located in the right colon with a distended cecum and small bowel. The patient was admitted for evaluation. She underwent a bowel prep with multiple enemas and she was then scheduled to undergo colonoscopy, central venous line placement, and laparotomy with right colectomy. The procedure, risks, benefits, and complications were explained to the patient. Their questions were answered and she decided to proceed. DESCRIPTION OF PROCEDURE: The procedure was done in the operating room. The patient was placed in a supine position. General anesthesia was induced by endotracheal intubation. The left upper chest was prepped and draped in a sterile fashion. The area just below the left clavicle and left neck was prepped and draped in the usual fashion. The left subclavian vein was initially approached with a #16 gauge but the subclavian vein could not be identified. At this point the left internal jugular vein was approached by making a needle stick in the neck anteriorly at the level of the apex of the sternocleidomastoid muscle triangle. The internal jugular vein was identified. A guidewire was inserted through the needle into the jugular vein and superior vena cava. The needle was removed and the insertion point of the guidewire enlarged with a tissue dilator, which was removed, and the triple-lumen catheter inserted over the guidewire into the internal jugular vein and superior vena cava. The guidewire was removed. At this point the triple-lumen catheter ports were aspirated and flushed with normal saline without difficulty. The triple-lumen catheter was then secured to the skin with silk sutures. A chest x-ray was then obtained to confirm good position of the line and no pneumothorax was identified. The patient was kept in the same supine position and colonoscopy was performed without difficulty. The colonoscope was advanced through the rectum, sigmoid colon, left transverse colon, up to the right colon. A large mass was identified in the right colon and could not be advanced further. The instrument was withdrawn. One small polyp was identified and removed with snare in the descending colon; however, this polyp could not be retrieved. The instrument was then slowly withdrawn within the remaining portion of the colon, removed from the rectum, no other lesions were noted. The abdominal wall was then prepped and draped in the usual fashion. A midline incision was made from above the umbilicus down to just above the symphysis pubis. The peritoneal cavity was entered. Small bowel was found to be very distended and edematous from previous mechanical obstruction. An enterotomy was made in the distal small bowel after a pursuestring suture was placed just 2 inches proximal to the ileocecal valve, a pool suction tip was inserted, the suture was tied around the suction cannula, and the entire small bowel was decompressed. The cannula was then removed. The enterotomy was closed with [id number] Lembert 2-0 silk sutures. Colotomy was then performed by making a pursestring suture in the anterior wall of the cecum. A hole was made with Bovie and a suction tip was inserted into the colon so as to decompress the colon. The suction tip was then removed and the colotomy was closed with the previously placed pursestring suture. The colon was then elevated off the retroperitoneum with Bovie, LigaSure, and blunt dissection and dissected off without difficulty until the duodenum was identified. Following this, attachments with the liver flexure and the retroperitoneum were taken down with Bovie, LigaSure as well as bluntly. Once this was accomplished the entire right colon and liver flexure were taken down. The gastrocolic ligament was divided just distal to the medial colic in a [id number] fashion until the liver flexure of the colon. Similarly the mesentery of the transverse colon was divided from the middle colic artery up to the right colon flexure. At this point the colon was elevated and divided distally to the level of the mid-transverse colon using a 75 mm long blue load ROBERT stapler. The terminal ileum was divided about 15 cm proximal to the ileocecal valve. Mesentery of the small bowel and colon was then divided with LigaSure. The specimen was removed off the surgical field and sent to pathology. The proximal and distal limbs of terminal ileum and colon were placed side by side and kept in position with Lembert 2-0 silk interrupted sutures placed in the antimesenteric border . The antimesenteric corners of each limb stapled line were opened with Bovie. A 75 mm long blue load ROBERT stapler was inserted, an enterocolostomy was obtained, and the stapler was removed. The large enterotomy was closed temporarily with Allis clamps and closed with a TA stapler. The stapled line was reinforced with interrupted Lembert 2-0 silk sutures. The large mesenteric defect of the enterocolostomy was closed with running, locking 2-0 silk suture. After this was accomplished the bowel was replaced within the peritoneal cavity. All sponges were removed and accounted for. The peritoneal cavity was irrigated with a total of 3 L of warm normal saline which was fully aspirated. The abdominal wall was closed with running #1 looped PDS suture. The small bowel was protected by a rubber protector which was removed. The subcutaneous tissue was irrigated and infiltrated with 0.5% Marcaine with epinephrine, and the skin was closed with ria. Sterile dressings were applied. The patient tolerated the procedure well, extubated, and transferred to the recovery room in satisfactory condition. DICTATING PHYSICIAN: CYNDIE HERRERA M.D. [id number] PHY#: [id number] ID: [id number] JOB#: [id number] ACCT: [id number] cc:CYNDIE HERRERA M.D. > MTDD
[2018-10-06] MEDS: ACETAMINOPHEN INJ/PF 1000 MG/100 ML SDV IV SCH ×2 (12:39→18:02)
[2018-10-06] MEDS: KETOROLAC TROMETHAMINE INJ/PF 30 MG/1 ML SDV IV PRN (20:53)
[2018-10-07] MEDS: ACETAMINOPHEN INJ/PF 1000 MG/100 ML SDV IV SCH ×3 (01:39→11:26)
[2018-10-07] MEDS: NORMAL SALINE 1000 ML 1,000 ML IV PRN (06:05)
[2018-10-07] MEDS: CEFOXITIN 1 GM/D5W RTU 1 GM/50 ML RTUPB IV SCH ×3 (06:05→22:16)
[2018-10-07 06:21] LABS: ABSOLUTE BASOPHILS # (AUTO) 0.1 10^3/uL (0.0-0.2); ABSOLUTE EOSINOPHILS # (AUTO) 0.2 10^3/uL (0.0-0.6); ABSOLUTE LYMPHOCYTES (AUTO) 1.9 10^3/uL (0.5-4.7); ABSOLUTE MONOCYTES (AUTO) 0.4 10^3/uL (0.1-1.4); ABSOLUTE NEUT (AUTO) 5.8 10^3/uL (1.7-8.2); BASOPHILS % (AUTO) 0.7 % (0-2); EOSINOPHILS % (AUTO) 2.3 % (0-6); HEMATOCRIT 41.5 % (36.0-47.0); HEMOGLOBIN 13.9 g/dL (12.0-15.5); LYMPHOCYTES % (AUTO) 23.1 % (13-45); MEAN CORPUSCULAR HEMOGLOBIN 26.3 pg (27.0-33.4); MEAN CORPUSCULAR HGB CONC 33.5 g/dL (32.0-36.0); MEAN CORPUSCULAR VOLUME 78 fl (80-97); MONOCYTES % (AUTO) 4.3 % (3-13); PLATELET COUNT 168 10^3/uL (150-450); RED BLOOD COUNT 5.29 10^6/uL (3.72-5.28); RED CELL DISTRIBUTION WIDTH 15.8 % (11.5-14.0); SEGMENTED NEUTROPHILS % (AUTO) 69.6 % (42-78); TOTAL CELLS COUNTED % (AUTO) 100 %; WHITE BLOOD COUNT 8.4 10^3/uL (4.0-10.5)
[2018-10-07 06:34] LABS: ANION GAP 5 (5-19); BLOOD UREA NITROGEN 7 mg/dL (7-20); CARBON DIOXIDE 24 mmol/L (22-30); CHLORIDE 105 mmol/L (98-107); GLUCOSE 101 mg/dL (75-110); POTASSIUM 3.4 mmol/L (3.6-5.0); SODIUM 134.4 mmol/L (137-145)
[2018-10-07] MEDS: FAMOTIDINE INJ/PF 20 MG/2 ML SDV IV SCH ×3 (07:43→10:56)
[2018-10-07] MEDS: MORPHINE SULFATE 10 MG/ML INJ IV PRN ×2 (11:48→17:15)
--- NOTE | 2018-10-07 12:03 | PDOC PROGRESS REPORT ---
Subjective Progress Note for:: 10/07/18 Subjective:: Pt seems better today but still has not yet passed gas, NGT out now. Is taking ice chips and small sips of apple juice so far. She did walk the halls Reason For Visit: RIGHT COLON CANCER Physical Exam Vital Signs: Temp Pulse Resp BP Pulse Ox 97.4 F 84 18 103/45 L 95 10/07/18 07:51 10/07/18 07:51 10/07/18 07:51 10/07/18 07:51 10/07/18 07:51 Intake & Output 10/06/18 10/07/18 10/08/18 06:59 06:59 06:59 Intake Total 6650 2345 50 Output Total 1260 1310 Balance 5390 1035 50 Weight 52 kg 51 kg General appearance: PRESENT: no acute distress, well-developed, well-nourished Head exam: PRESENT: atraumatic, normocephalic Eye exam: PRESENT: conjunctiva pink, EOMI, PERRLA. ABSENT: scleral icterus Ear exam: PRESENT: normal external ear exam Mouth exam: PRESENT: moist, tongue midline Neck exam: ABSENT: carotid bruit, JVD, lymphadenopathy, thyromegaly Respiratory exam: PRESENT: clear to auscultation dianna. ABSENT: rales, rhonchi, wheezes Cardiovascular exam: PRESENT: RRR. ABSENT: diastolic murmur, rubs, systolic murmur Pulses: PRESENT: normal dorsalis pedis pul Vascular exam: PRESENT: normal capillary refill GI/Abdominal exam: PRESENT: normal bowel sounds, soft. ABSENT: distended, guarding, mass, organolmegaly, rebound, tenderness Rectal exam: PRESENT: deferred Extremities exam: PRESENT: full ROM. ABSENT: calf tenderness, clubbing, pedal edema Neurological exam: PRESENT: alert, awake, oriented to person, oriented to place, oriented to time, oriented to situation, CN II-XII grossly intact. ABSENT: motor sensory deficit Psychiatric exam: PRESENT: appropriate affect, normal mood. ABSENT: homicidal ideation, suicidal ideation Skin exam: PRESENT: dry, intact, warm. ABSENT: cyanosis, rash Results Laboratory Results: 10/07/18 06:12 10/07/18 06:12 10/07/18 10/07/18 06:12 06:12 WBC 8.4 RBC 5.29 H Hgb 13.9 Hct 41.5 MCV 78 L MCH 26.3 L MCHC 33.5 RDW 15.8 H Plt Count 168 Seg Neutrophils % 69.6 Lymphocytes % 23.1 Monocytes % 4.3 Eosinophils % 2.3 Basophils % 0.7 Absolute Neutrophils 5.8 Absolute Lymphocytes 1.9 Absolute Monocytes 0.4 Absolute Eosinophils 0.2 Absolute Basophils 0.1 Sodium 134.4 L Potassium 3.4 L Chloride 105 Carbon Dioxide 24 Anion Gap 5 BUN 7 Creatinine 0.55 Est GFR ( Amer) > 60 Est GFR (Non-Af Amer) > 60 Glucose 101 Calcium 8.0 L Impressions: Abdomen/Pelvis CT 10/04/18 00:00 IMPRESSION: 1. Cannot exclude partial bowel obstruction secondary to a mass lesion at the superior aspect of the cecum in the ascending colon. 2. Cannot exclude an enteritis. 3. Cholelithiasis. Chest X-Ray 10/05/18 00:00 IMPRESSION: NO ACUTE RADIOGRAPHIC FINDING IN THE CHEST. Assessment & Plan - Diagnosis (1) Cecum mass Is this a current diagnosis for this admission?: Yes Plan: Likely primary colon ca, awaiting path, will cont to follow closely. - Time Time Spent with patient: 25-34 minutes - Inpatient Certification Based on my medical assessment, after consideration of the patient's comorbidities, presenting symptoms, or acuity I expect that the services needed warrant INPATIENT care.: Yes I certify that my determination is in accordance with my understanding of Medicare's requirements for reasonable and necessary INPATIENT services [42 CFR 412.3e].: Yes Medical Necessity: Need For IV Fluids, Need for Pain Control, Risk of Complication if Not Cared For in Hospital
--- NOTE | 2018-10-07 12:08 | PDOC PROGRESS REPORT ---
Subjective Progress Note for:: 10/07/18 Subjective:: comfortable, no flatus yet Reason For Visit: RIGHT COLON CANCER Physical Exam Vital Signs: Temp Pulse Resp BP Pulse Ox 97.4 F 84 18 103/45 L 95 10/07/18 07:51 10/07/18 07:51 10/07/18 07:51 10/07/18 07:51 10/07/18 07:51 Intake & Output 10/06/18 10/07/18 10/08/18 06:59 06:59 06:59 Intake Total 6650 2345 50 Output Total 1260 1310 Balance 5390 1035 50 Weight 52 kg 51 kg General appearance: PRESENT: no acute distress Mouth exam: PRESENT: moist Respiratory exam: PRESENT: clear to auscultation dianna Cardiovascular exam: PRESENT: RRR GI/Abdominal exam: PRESENT: soft, other - no bowel sounds, wound C/D/I Results Laboratory Results: 10/07/18 06:12 10/07/18 06:12 10/07/18 10/07/18 06:12 06:12 WBC 8.4 RBC 5.29 H Hgb 13.9 Hct 41.5 MCV 78 L MCH 26.3 L MCHC 33.5 RDW 15.8 H Plt Count 168 Seg Neutrophils % 69.6 Lymphocytes % 23.1 Monocytes % 4.3 Eosinophils % 2.3 Basophils % 0.7 Absolute Neutrophils 5.8 Absolute Lymphocytes 1.9 Absolute Monocytes 0.4 Absolute Eosinophils 0.2 Absolute Basophils 0.1 Sodium 134.4 L Potassium 3.4 L Chloride 105 Carbon Dioxide 24 Anion Gap 5 BUN 7 Creatinine 0.55 Est GFR ( Amer) > 60 Est GFR (Non-Af Amer) > 60 Glucose 101 Calcium 8.0 L Impressions: Abdomen/Pelvis CT 10/04/18 00:00 IMPRESSION: 1. Cannot exclude partial bowel obstruction secondary to a mass lesion at the superior aspect of the cecum in the ascending colon. 2. Cannot exclude an enteritis. 3. Cholelithiasis. Chest X-Ray 10/05/18 00:00 IMPRESSION: NO ACUTE RADIOGRAPHIC FINDING IN THE CHEST. Assessment & Plan - Diagnosis (1) Weight loss Is this a current diagnosis for this admission?: Yes (2) Cecum mass Is this a current diagnosis for this admission?: Yes - Plan Summary Plan Summary: A/ POD #2 after right colectomy, colonpscpoy VSS, AF good UO Blood work WNL excerpt for low K (3.4) P/ Continue ice chips only start TPN plus NS to make total IVF/hr 100 mL/hr continue IV Abx continue other meds discontinue low morphine dose
[2018-10-07] MEDS ORDERED: DEXTROSE 50%-WATER SYRINGE 12.5 GM/25 ML DOSE IV PRN (13:00)
[2018-10-07] MEDS ORDERED: DEXTROSE 10%-WATER 1,000 ML IV PRN (13:00)
[2018-10-07] MEDS ORDERED: INSULIN REG, HUMAN 100 UNIT/ML 3 ML VIAL (PYX) SUBCUT PRN (13:00)
[2018-10-07] MEDS ORDERED: DEXTROSE 50%-WATER SYRINGE 25 GM/50 ML DOSE IV PRN (13:00)
[2018-10-07] MEDS ORDERED: DEXTROSE 40% GEL 15 GM TUBE PO PRN (13:00)
[2018-10-07] MEDS ORDERED: GLUCAGON,HUMAN RECOMB 1 MG INJ IM PRN (13:00)
[2018-10-07] MEDS ORDERED: DEXTROSE 40% GEL 15 GM TUBE X 2 PO PRN (13:00)
[2018-10-07 14:34] LABS: INTERNATIONAL RATION (INR) 1.34; PROTHROMBIN TIME 17.2 SEC (11.4-15.4)
[2018-10-07 14:45] LABS: ALANINE AMINOTRANSFERASE 66 U/L (9-52); ALBUMIN 1.9 g/dL (3.5-5.0); ALKALINE PHOSPHATASE 72 U/L (38-126); ASPARTATE AMINO TRANSFERASE 105 U/L (14-36); BILIRUBIN,DIRECT 0.7 mg/dL (0.0-0.4); BILIRUBIN,TOTAL 1.1 mg/dL (0.2-1.3); BLOOD UREA NITROGEN 9 mg/dL (7-20); CALCIUM 7.6 mg/dL (8.4-10.2); GLUCOSE 88 mg/dL (75-110); PHOSPHORUS 3.4 mg/dL (2.5-4.5); POTASSIUM 3.5 mmol/L (3.6-5.0); TOTAL PROTEIN 4.4 g/dL (6.3-8.2)
[2018-10-07 15:05] LABS: PREALBUMIN < 3.0 mg/dL (17.6-36.0)
[2018-10-07 15:18] LABS: ANION GAP 4 (5-19); CARBON DIOXIDE 24 mmol/L (22-30); CHLORIDE 106 mmol/L (98-107); SODIUM 133.9 mmol/L (137-145)
[2018-10-07] MEDS: ACETAMINOPHEN 1,000 MG/100 ML RTUPB IV SCH (17:16)
[2018-10-07] MEDS: AMINO ACIDS 5%/D25W 1,000 ML IV PRN (18:26)
[2018-10-07] MEDS: ONDANSETRON HCL INJ/PF 4 MG/2 ML SDV IV PRN (18:31)
[2018-10-08] MEDS: ACETAMINOPHEN 1,000 MG/100 ML RTUPB IV SCH ×4 (00:49→17:09)
[2018-10-08] MEDS: NORMAL SALINE 1000 ML 1,000 ML IV PRN ×2 (05:13→22:05)
[2018-10-08] MEDS: CEFOXITIN 1 GM/D5W RTU 1 GM/50 ML RTUPB IV SCH ×3 (05:32→22:05)
[2018-10-08 07:22] LABS: ALANINE AMINOTRANSFERASE 73 U/L (9-52); ALBUMIN 1.7 g/dL (3.5-5.0); ALKALINE PHOSPHATASE 61 U/L (38-126); ASPARTATE AMINO TRANSFERASE 104 U/L (14-36); BILIRUBIN,DIRECT 0.3 mg/dL (0.0-0.4); BILIRUBIN,TOTAL 0.6 mg/dL (0.2-1.3); BLOOD UREA NITROGEN 13 mg/dL (7-20); CALCIUM 7.6 mg/dL (8.4-10.2); GLUCOSE 96 mg/dL (75-110); PHOSPHORUS 2.6 mg/dL (2.5-4.5); POTASSIUM 3.4 mmol/L (3.6-5.0)
[2018-10-08 07:28] LABS: CARBON DIOXIDE 23 mmol/L (22-30); CHLORIDE 107 mmol/L (98-107); SODIUM 134.3 mmol/L (137-145)
[2018-10-08 07:32] LABS: PREALBUMIN < 3.0 mg/dL (17.6-36.0)
[2018-10-08 07:33] LABS: ANION GAP 4 (5-19)
[2018-10-08 08:01] LABS: ABSOLUTE EOSINOPHILS # (AUTO) 0.1 10^3/uL (0.0-0.6); ABSOLUTE LYMPHOCYTES (AUTO) 0.6 10^3/uL (0.5-4.7); ABSOLUTE MONOCYTES (AUTO) 0.2 10^3/uL (0.1-1.4); ABSOLUTE NEUT (AUTO) 3.3 10^3/uL (1.7-8.2); BASOPHILS % (AUTO) 0.3 % (0-2); EOSINOPHILS % (AUTO) 2.4 % (0-6); LYMPHOCYTES % (AUTO) 13.4 % (13-45); MEAN CORPUSCULAR HEMOGLOBIN 26.7 pg (27.0-33.4); MEAN CORPUSCULAR HGB CONC 34.1 g/dL (32.0-36.0); MEAN CORPUSCULAR VOLUME 78 fl (80-97); MONOCYTES % (AUTO) 5.4 % (3-13); PLATELET COUNT 149 10^3/uL (150-450); RED BLOOD COUNT 4.21 10^6/uL (3.72-5.28); SEGMENTED NEUTROPHILS % (AUTO) 78.5 % (42-78); TOTAL CELLS COUNTED % (AUTO) 100 %; WHITE BLOOD COUNT 4.2 10^3/uL (4.0-10.5)
[2018-10-08 08:11] LABS: HEMOGLOBIN 11.2 g/dL (12.0-15.5)
--- NOTE | 2018-10-08 11:29 | PDOC PROGRESS REPORT ---
Subjective Progress Note for:: 10/08/18 Subjective:: Doing ok but TPN started since bowels still not activated. CT chest was never done, I reorder that today. Reason For Visit: RIGHT COLON CANCER Physical Exam Vital Signs: Temp Pulse Resp BP Pulse Ox 97.4 F 74 18 103/55 L 96 10/08/18 08:10 10/08/18 08:10 10/08/18 08:10 10/08/18 08:10 10/08/18 08:10 Intake & Output 10/07/18 10/08/18 10/09/18 06:59 06:59 06:59 Intake Total 2345 1500 Output Total 1310 1550 Balance 1035 -50 Weight 51 kg 53.2 kg General appearance: PRESENT: no acute distress, well-developed, well-nourished Head exam: PRESENT: atraumatic, normocephalic Eye exam: PRESENT: conjunctiva pink, EOMI, PERRLA. ABSENT: scleral icterus Ear exam: PRESENT: normal external ear exam Mouth exam: PRESENT: moist, tongue midline Neck exam: ABSENT: carotid bruit, JVD, lymphadenopathy, thyromegaly Respiratory exam: PRESENT: clear to auscultation dianna. ABSENT: rales, rhonchi, wheezes Cardiovascular exam: PRESENT: RRR. ABSENT: diastolic murmur, rubs, systolic murmur Pulses: PRESENT: normal dorsalis pedis pul Vascular exam: PRESENT: normal capillary refill GI/Abdominal exam: PRESENT: normal bowel sounds, soft. ABSENT: distended, guarding, mass, organolmegaly, rebound, tenderness Rectal exam: PRESENT: deferred Extremities exam: PRESENT: full ROM. ABSENT: calf tenderness, clubbing, pedal edema Neurological exam: PRESENT: alert, awake, oriented to person, oriented to place, oriented to time, oriented to situation, CN II-XII grossly intact. ABSENT: motor sensory deficit Psychiatric exam: PRESENT: appropriate affect, normal mood. ABSENT: homicidal ideation, suicidal ideation Skin exam: PRESENT: dry, intact, warm. ABSENT: cyanosis, rash Results Laboratory Results: 10/08/18 07:46 10/08/18 06:59 10/07/18 10/08/18 10/08/18 13:54 06:59 06:59 WBC Cancelled RBC Cancelled Hgb Cancelled Hct Cancelled MCV Cancelled MCH Cancelled MCHC Cancelled RDW Cancelled Plt Count Cancelled Seg Neutrophils % Cancelled Lymphocytes % Cancelled Monocytes % Cancelled Eosinophils % Cancelled Basophils % Cancelled Absolute Neutrophils Cancelled Absolute Lymphocytes Cancelled Absolute Monocytes Cancelled Absolute Eosinophils Cancelled Absolute Basophils Cancelled Sodium 133.9 L 134.3 L Potassium 3.5 L 3.4 L Chloride 106 107 Carbon Dioxide 24 23 Anion Gap 4 L 4 L BUN 9 13 Creatinine 0.60 0.61 Est GFR ( Amer) > 60 > 60 Est GFR (Non-Af Amer) > 60 > 60 Glucose 88 96 Calcium 7.6 L 7.6 L Phosphorus 3.4 2.6 Magnesium 1.3 L Total Bilirubin 1.1 0.6 AST 105 H 104 H ALT 66 H 73 H Alkaline Phosphatase 72 61 Total Protein 4.4 L 4.0 L Albumin 1.9 L 1.7 L Prealbumin < 3.0 L < 3.0 L 10/08/18 07:46 WBC 4.2 RBC 4.21 Hgb 11.2 L D Hct 33.0 L MCV 78 L MCH 26.7 L MCHC 34.1 RDW 16.0 H Plt Count 149 L Seg Neutrophils % 78.5 H Lymphocytes % 13.4 Monocytes % 5.4 Eosinophils % 2.4 Basophils % 0.3 Absolute Neutrophils 3.3 Absolute Lymphocytes 0.6 Absolute Monocytes 0.2 Absolute Eosinophils 0.1 Absolute Basophils 0.0 Sodium Potassium Chloride Carbon Dioxide Anion Gap BUN Creatinine Est GFR ( Amer) Est GFR (Non-Af Amer) Glucose Calcium Phosphorus Magnesium Total Bilirubin AST ALT Alkaline Phosphatase Total Protein Albumin Prealbumin Impressions: Abdomen/Pelvis CT 10/04/18 00:00 IMPRESSION: 1. Cannot exclude partial bowel obstruction secondary to a mass lesion at the superior aspect of the cecum in the ascending colon. 2. Cannot exclude an enteritis. 3. Cholelithiasis. Chest X-Ray 10/05/18 00:00 IMPRESSION: NO ACUTE RADIOGRAPHIC FINDING IN THE CHEST. Status: Image reviewed by me Assessment & Plan - Diagnosis (1) Cecum mass Is this a current diagnosis for this admission?: Yes Plan: Awaiting pathology, CT chest done today we will see what results are. Hopefully does not show distant disease. - Time Time Spent with patient: 35 or more minutes
--- NOTE | 2018-10-08 11:38 | RADIOLOGY REPORT (SQ) ---
EXAM DESCRIPTION: CT CHEST WITH COMPLETED DATE/TIME: 10/08/2018 11:13 am REASON FOR STUDY: colon CA COMPARISON: None. TECHNIQUE: CT scan of the chest performed using helical scanning technique with dynamic intravenous contrast injection. Images reviewed with lung, soft tissue and bone windows. Reconstructed coronal and sagittal MPR and MIP images reviewed. All images stored on PACS. All CT scanners at this facility use dose modulation, iterative reconstruction, and/or weight based d osing when appropriate to reduce radiation dose to as low as reasonably achievable (ALARA). [facility]: Dose Right [facility]: CareDose [facility]: Dose Right [facility]: Teradose 4D [facility]: [place] CONTRAST TYPE AND DOSE: 75 mL Omnipaque 350- low osmolar. RENAL FUNCTION: BUN 13 creatinine 0.61. RADIATION DOSE: CT Rad equipment meets quality standard of care and radiation dose reduction techniq ues were employed. CTDIvol: 6.5 mGy. DLP: 217 mGy-cm. . LIMITATIONS: None. FINDINGS: LUNGS AND PLEURA: Bilateral pleural effusions with lower lobe consolidations. HILAR AND MEDIASTINAL STRUCTURES: No identified masses or abnormal nodes. HEART AND VASCULAR STRUCTURES: No aneurysm or dissection. No central pulmonary emboli. No pericardi al effusion. HARDWARE: None in the chest. UPPER ABDOMEN: Free air and free fluid secondary to recent abdominal surgery. Gallstones. Limited e xam. THYROID AND OTHER SOFT TISSUES: No masses. No adenopathy. BONES: No significant finding. OTHER: No other significant finding. IMPRESSION: 1. BILATERAL PLEURAL EFFUSIONS. LOWER LOBE CONSOLIDATIONS PRESUMABLY DUE TO COMPRESSIVE ATELECTASIS ALTHOUGH PNEUMONIA IS ANOTHER POSSIBILITY. 2. FINDINGS IN THE UPPER ABDOMEN RELATED TO RECENT SURGERY. TECHNICAL DOCUMENTATION: JOB ID: [id number] Quality ID # [id number]: Final reports with documentation of one or more dose reduction techniques (e.g., Au tomated exposure control, adjustment of the mA and/or kV according to patient size, use of iterative reconstruction technique) 2010 [employer]- All Rights Reserved Reading location - IP/workstation name: [email or web address]
--- NOTE | 2018-10-08 15:54 | PDOC PROGRESS REPORT ---
Subjective Progress Note for:: 10/08/18 Subjective:: comfortable, flatus today Reason For Visit: RIGHT COLON CANCER Physical Exam Vital Signs: Temp Pulse Resp BP Pulse Ox 97.4 F 74 18 103/55 L 96 10/08/18 08:10 10/08/18 08:10 10/08/18 08:10 10/08/18 08:10 10/08/18 08:10 Intake & Output 10/07/18 10/08/18 10/09/18 06:59 06:59 06:59 Intake Total 2345 1500 1150 Output Total 1310 1550 175 Balance 1035 -50 975 Weight 51 kg 53.2 kg General appearance: PRESENT: no acute distress Respiratory exam: PRESENT: clear to auscultation dianna Cardiovascular exam: PRESENT: RRR GI/Abdominal exam: PRESENT: normal bowel sounds, soft Results Laboratory Results: 10/08/18 07:46 10/08/18 06:59 10/08/18 10/08/18 10/08/18 06:59 06:59 07:46 WBC Cancelled 4.2 RBC Cancelled 4.21 Hgb Cancelled 11.2 L D Hct Cancelled 33.0 L MCV Cancelled 78 L MCH Cancelled 26.7 L MCHC Cancelled 34.1 RDW Cancelled 16.0 H Plt Count Cancelled 149 L Seg Neutrophils % Cancelled 78.5 H Lymphocytes % Cancelled 13.4 Monocytes % Cancelled 5.4 Eosinophils % Cancelled 2.4 Basophils % Cancelled 0.3 Absolute Neutrophils Cancelled 3.3 Absolute Lymphocytes Cancelled 0.6 Absolute Monocytes Cancelled 0.2 Absolute Eosinophils Cancelled 0.1 Absolute Basophils Cancelled 0.0 Sodium 134.3 L Potassium 3.4 L Chloride 107 Carbon Dioxide 23 Anion Gap 4 L BUN 13 Creatinine 0.61 Est GFR ( Amer) > 60 Est GFR (Non-Af Amer) > 60 Glucose 96 Calcium 7.6 L Phosphorus 2.6 Total Bilirubin 0.6 AST 104 H ALT 73 H Alkaline Phosphatase 61 Total Protein 4.0 L Albumin 1.7 L Prealbumin < 3.0 L Impressions: Abdomen/Pelvis CT 10/04/18 00:00 IMPRESSION: 1. Cannot exclude partial bowel obstruction secondary to a mass lesion at the superior aspect of the cecum in the ascending colon. 2. Cannot exclude an enteritis. 3. Cholelithiasis. Chest X-Ray 10/05/18 00:00 IMPRESSION: NO ACUTE RADIOGRAPHIC FINDING IN THE CHEST. Chest CT 10/08/18 00:00 IMPRESSION: 1. BILATERAL PLEURAL EFFUSIONS. LOWER LOBE CONSOLIDATIONS PRESUMABLY DUE TO COMPRESSIVE ATELECTASIS ALTHOUGH PNEUMONIA IS ANOTHER POSSIBILITY. 2. FINDINGS IN THE UPPER ABDOMEN RELATED TO RECENT SURGERY. Assessment & Plan - Diagnosis (1) Weight loss Is this a current diagnosis for this admission?: Yes (2) Cecum mass Is this a current diagnosis for this admission?: Yes - Plan Summary Plan Summary: A/ POD#3 after right hemoicolectomy for cancer VSS, AF blood wotk WNL except for low K Flatus today abdomen soft P/ start clear liquid diet continue TPN for 1-2 more days Discharge possibly in 2-3 days
[2018-10-08] MEDS: AMINO ACIDS 5%/D25W 1,000 ML IV PRN (17:44)
[2018-10-08] MEDS: KETOROLAC TROMETHAMINE INJ/PF 30 MG/1 ML SDV IV PRN (22:16)
[2018-10-09] MEDS: ACETAMINOPHEN 1,000 MG/100 ML RTUPB IV SCH ×2 (00:46→05:46)
[2018-10-09] MEDS: ONDANSETRON HCL INJ/PF 4 MG/2 ML SDV IV PRN ×3 (03:41→16:35)
[2018-10-09] MEDS: CEFOXITIN 1 GM/D5W RTU 1 GM/50 ML RTUPB IV SCH (06:05)
[2018-10-09 07:04] LABS: HEMATOCRIT 32.8 % (36.0-47.0); HEMOGLOBIN 11.2 g/dL (12.0-15.5); MEAN CORPUSCULAR HEMOGLOBIN 26.5 pg (27.0-33.4); MEAN CORPUSCULAR HGB CONC 34.3 g/dL (32.0-36.0); MEAN CORPUSCULAR VOLUME 77 fl (80-97); PLATELET COUNT 145 10^3/uL (150-450); RED BLOOD COUNT 4.25 10^6/uL (3.72-5.28); RED CELL DISTRIBUTION WIDTH 16.4 % (11.5-14.0)
[2018-10-09 07:11] LABS: INTERNATIONAL RATION (INR) 1.33; PROTHROMBIN TIME 17.1 SEC (11.4-15.4)
[2018-10-09 07:44] LABS: ALBUMIN 1.5 g/dL (3.5-5.0); ALKALINE PHOSPHATASE 68 U/L (38-126); ANION GAP 5 (5-19); ASPARTATE AMINO TRANSFERASE 228 U/L (14-36); BILIRUBIN,DIRECT 0.4 mg/dL (0.0-0.4); BILIRUBIN,TOTAL 0.5 mg/dL (0.2-1.3); BLOOD UREA NITROGEN 15 mg/dL (7-20); CALCIUM 7.8 mg/dL (8.4-10.2); CARBON DIOXIDE 20 mmol/L (22-30); CHLORIDE 109 mmol/L (98-107); GLUCOSE 126 mg/dL (75-110); PHOSPHORUS 1.8 mg/dL (2.5-4.5); POTASSIUM 3.5 mmol/L (3.6-5.0); SODIUM 133.8 mmol/L (137-145); TOTAL PROTEIN 3.7 g/dL (6.3-8.2)
[2018-10-09 07:55] LABS: PREALBUMIN < 3.0 mg/dL (17.6-36.0)
[2018-10-09 07:58] LABS: WHITE BLOOD COUNT 2.8 10^3/uL (4.0-10.5)
[2018-10-09 08:03] LABS: ABSOLUTE LYMPHOCYTES# (MANUAL) 0.6 10^3/uL (0.5-4.7); ABSOLUTE NEUTROPHILS# (MANUAL) 2.1 10^3/uL (1.7-8.2); ACANTHOCYTES SLIGHT; ANISOCYTOSIS 1+; BAND NEUTROPHILS % (MANUAL) 6 % (3-5); BASOPHILS % (MANUAL) 0 % (0-2); BURR CELLS 2+; EOSINOPHILS % (MANUAL) 1 % (0-6); HYPOCHROMASIA SLIGHT; LYMPHOCYTES % (MANUAL) 22 % (13-45); MONOCYTES % (MANUAL) 1 % (3-13); PLATELET COMMENT ADEQUATE; POIKILOCYTOSIS 2+; SCHISTOCYTES SLIGHT; SEGMENTED NEUTROPHILS % (MAN) 69 % (42-78); TOTAL CELLS COUNTED 100; TOXIC GRANULATION 2+; TOXIC VACUOLATION PRESENT
[2018-10-09 08:05] LABS: ALANINE AMINOTRANSFERASE 166 U/L (9-52)
--- NOTE | 2018-10-09 08:25 | PDOC PROGRESS REPORT ---
Subjective Progress Note for:: 10/09/18 Subjective:: Patient denies pain. States she is now passing gas. Still not feeling great, but slowly improving. ROS: No dyspnea. No chest pain. Reason For Visit: RIGHT COLON CANCER Physical Exam Vital Signs: Temp Pulse Resp BP Pulse Ox 97.9 F 77 18 107/56 L 98 10/09/18 04:25 10/09/18 04:25 10/09/18 04:25 10/09/18 04:25 10/09/18 04:25 Intake & Output 10/08/18 10/09/18 10/10/18 06:59 06:59 06:59 Intake Total 1500 2400 Output Total 1550 775 Balance -50 1625 Weight 53.2 kg 53.8 kg General appearance: PRESENT: thin Head exam: PRESENT: normocephalic Respiratory exam: PRESENT: clear to auscultation dianna, unlabored Cardiovascular exam: PRESENT: RRR GI/Abdominal exam: PRESENT: soft, other - Incisions covered and dry. Extremities exam: ABSENT: pedal edema Neurological exam: PRESENT: alert, awake Psychiatric exam: PRESENT: appropriate affect Skin exam: PRESENT: normal color Results Laboratory Results: 10/09/18 06:39 10/09/18 06:39 10/09/18 10/09/18 10/09/18 06:39 06:39 06:39 WBC 2.8 L D RBC 4.25 Hgb 11.2 L Hct 32.8 L MCV 77 L MCH 26.5 L MCHC 34.3 RDW 16.4 H Plt Count 145 L Seg Neutrophils % Not Reportable Lymphocytes % Not Reportable Monocytes % Not Reportable Eosinophils % Not Reportable Basophils % Not Reportable Absolute Neutrophils Not Reportable Absolute Lymphocytes Not Reportable Absolute Monocytes Not Reportable Absolute Eosinophils Not Reportable Absolute Basophils Not Reportable Sodium 133.8 L Potassium 3.5 L Chloride 109 H Carbon Dioxide 20 L Anion Gap 5 BUN 15 Creatinine 0.60 Est GFR ( Amer) > 60 Est GFR (Non-Af Amer) > 60 Glucose 126 H Calcium 7.8 L Phosphorus 1.8 L Magnesium 2.0 Total Bilirubin 0.5 AST 228 H ALT 166 H Alkaline Phosphatase 68 Total Protein 3.7 L Albumin 1.5 L Prealbumin < 3.0 L Impressions: Abdomen/Pelvis CT 10/04/18 00:00 IMPRESSION: 1. Cannot exclude partial bowel obstruction secondary to a mass lesion at the superior aspect of the cecum in the ascending colon. 2. Cannot exclude an enteritis. 3. Cholelithiasis. Chest X-Ray 10/05/18 00:00 IMPRESSION: NO ACUTE RADIOGRAPHIC FINDING IN THE CHEST. Chest CT 10/08/18 00:00 IMPRESSION: 1. BILATERAL PLEURAL EFFUSIONS. LOWER LOBE CONSOLIDATIONS PRESUMABLY DUE TO COMPRESSIVE ATELECTASIS ALTHOUGH PNEUMONIA IS ANOTHER POSSIBILITY. 2. FINDINGS IN THE UPPER ABDOMEN RELATED TO RECENT SURGERY. Assessment & Plan - Diagnosis (1) Cecum mass Is this a current diagnosis for this admission?: Yes Plan: s/p surgery. On TPN, but passing gas. Nurses will discuss po diet with surgeon. Await pathology report. Still pending. CT chest was negative for mass. (2) Anemia Qualifiers: Iron deficiency anemia type: other iron deficiency Is this a current diagnosis for this admission?: Yes Plan: Will order IV iron today, as she is not able to tolerate PO thus far. I believe this will help her recover faster.
[2018-10-09] MEDS ORDERED: FERRIC CARBOXYMALTOSE INJ 750 MG/15 ML VIAL IV SCH (08:30)
[2018-10-09] MEDS ORDERED: KETOROLAC TROMETHAMINE INJ/PF 30 MG/1 ML SDV IV PRN (09:49)
--- NOTE | 2018-10-09 09:57 | PDOC PROGRESS REPORT ---
Subjective Progress Note for:: 10/09/18 Reason For Visit: RIGHT COLON CANCER Physical Exam Vital Signs: Temp Pulse Resp BP Pulse Ox 97.7 F 78 16 92/56 L 96 10/09/18 08:11 10/09/18 08:11 10/09/18 08:11 10/09/18 08:11 10/09/18 08:11 Intake & Output 10/08/18 10/09/18 10/10/18 06:59 06:59 06:59 Intake Total 1500 2400 Output Total 1550 775 Balance -50 1625 Weight 53.2 kg 53.8 kg Results Laboratory Results: 10/09/18 06:39 10/09/18 06:39 10/09/18 10/09/18 10/09/18 06:39 06:39 06:39 WBC 2.8 L D RBC 4.25 Hgb 11.2 L Hct 32.8 L MCV 77 L MCH 26.5 L MCHC 34.3 RDW 16.4 H Plt Count 145 L Seg Neutrophils % Not Reportable Lymphocytes % Not Reportable Monocytes % Not Reportable Eosinophils % Not Reportable Basophils % Not Reportable Absolute Neutrophils Not Reportable Absolute Lymphocytes Not Reportable Absolute Monocytes Not Reportable Absolute Eosinophils Not Reportable Absolute Basophils Not Reportable Sodium 133.8 L Potassium 3.5 L Chloride 109 H Carbon Dioxide 20 L Anion Gap 5 BUN 15 Creatinine 0.60 Est GFR ( Amer) > 60 Est GFR (Non-Af Amer) > 60 Glucose 126 H Calcium 7.8 L Phosphorus 1.8 L Magnesium 2.0 Total Bilirubin 0.5 AST 228 H ALT 166 H Alkaline Phosphatase 68 Total Protein 3.7 L Albumin 1.5 L Prealbumin < 3.0 L Impressions: Abdomen/Pelvis CT 10/04/18 00:00 IMPRESSION: 1. Cannot exclude partial bowel obstruction secondary to a mass lesion at the superior aspect of the cecum in the ascending colon. 2. Cannot exclude an enteritis. 3. Cholelithiasis. Chest X-Ray 10/05/18 00:00 IMPRESSION: NO ACUTE RADIOGRAPHIC FINDING IN THE CHEST. Chest CT 10/08/18 00:00 IMPRESSION: 1. BILATERAL PLEURAL EFFUSIONS. LOWER LOBE CONSOLIDATIONS PRESUMABLY DUE TO COMPRESSIVE ATELECTASIS ALTHOUGH PNEUMONIA IS ANOTHER POSSIBILITY. 2. FINDINGS IN THE UPPER ABDOMEN RELATED TO RECENT SURGERY. Assessment & Plan - Diagnosis (1) Cecum mass Is this a current diagnosis for this admission?: Yes - Plan Summary Plan Summary: This is a 63-year-old female status post right hemicolectomy for colon cancer. The patient reports having a bowel movement this morning. The patient still experiences some nausea with the ingestion of liquids. I will maintain her on clear liquids today. I have encouraged her to ambulate, and use her incentive spirometer. I will add Pepcid for gastritis prevention (and decrease the frequency of her Toradol). Discontinue antibiotics. Hypokalemia and hypophosphatemia: Replaced today with IV potassium phosphate.
[2018-10-09] MEDS ORDERED: FAT EMULSIONS 250 ML IV SCH ×2 (10:00→11:00)
[2018-10-09] MEDS ORDERED: FERRIC CARBOXYMALTOSE 750 MG in NORMAL SALINE 250 ML IV ONE (11:00)
[2018-10-09] MEDS ORDERED: POTASSIUM PHOS,M-BASIC-D-BASIC 30 MMOL in NORMAL SALINE 500 ML IV ONE (11:00)
[2018-10-09] MEDS: FAMOTIDINE 20 MG TABLET PO SCH (13:07)
[2018-10-09] MEDS: AMINO ACIDS 5%/D25W 1,000 ML IV PRN (16:33)
[2018-10-09] MEDS: NORMAL SALINE 1000 ML 1,000 ML IV PRN (22:24)
[2018-10-10] MEDS: ONDANSETRON HCL INJ/PF 4 MG/2 ML SDV IV PRN ×2 (07:07→23:12)
[2018-10-10] MEDS: MORPHINE SULFATE 10 MG/ML INJ IV PRN ×2 (07:08→14:32)
[2018-10-10 08:11] LABS: HEMATOCRIT 32.3 % (36.0-47.0); HEMOGLOBIN 10.8 g/dL (12.0-15.5); MEAN CORPUSCULAR HEMOGLOBIN 26.3 pg (27.0-33.4); MEAN CORPUSCULAR HGB CONC 33.5 g/dL (32.0-36.0); MEAN CORPUSCULAR VOLUME 78 fl (80-97); PLATELET COUNT 177 10^3/uL (150-450); RED BLOOD COUNT 4.12 10^6/uL (3.72-5.28); RED CELL DISTRIBUTION WIDTH 16.8 % (11.5-14.0); WHITE BLOOD COUNT 3.3 10^3/uL (4.0-10.5)
[2018-10-10 08:49] LABS: ABSOLUTE LYMPHOCYTES# (MANUAL) 0.5 10^3/uL (0.5-4.7); ABSOLUTE MONOCYTES # (MANUAL) 0.3 10^3/uL (0.1-1.4); ABSOLUTE NEUTROPHILS# (MANUAL) 2.3 10^3/uL (1.7-8.2); BASOPHILS % (MANUAL) 0 % (0-2); EOSINOPHILS % (MANUAL) 3 % (0-6); LYMPHOCYTES % (MANUAL) 13 % (13-45); MONOCYTES % (MANUAL) 10 % (3-13); SEGMENTED NEUTROPHILS % (MAN) 71 % (42-78); TOTAL CELLS COUNTED 100
[2018-10-10 08:51] LABS: HYPOCHROMASIA SLIGHT; POLYCHROMASIA SLIGHT; TOXIC GRANULATION 2+
[2018-10-10 08:52] LABS: ANISOCYTOSIS 1+; BURR CELLS 1+; OVALOCYTES 1+; PLATELET COMMENT ADEQUATE; POIKILOCYTOSIS 2+; SCHISTOCYTES SLIGHT
--- NOTE | 2018-10-10 08:52 | PDOC PROGRESS REPORT ---
Subjective Progress Note for:: 10/10/18 Subjective:: Patient seems a little bit more nauseous today and was passing gas as well as had a small liquid BM. Today I had a long discussion about her pathology and next steps of care. Today spent 45 minutes in discussion. Reason For Visit: RIGHT COLON CANCER Physical Exam Vital Signs: Temp Pulse Resp BP Pulse Ox 99.7 F 97 22 H 106/53 L 90 L 10/10/18 07:19 10/10/18 07:19 10/10/18 07:19 10/10/18 07:19 10/10/18 07:19 Intake & Output 10/09/18 10/10/18 10/11/18 06:59 06:59 06:59 Intake Total 3400 2165 1000 Output Total 775 950 Balance 2625 1215 1000 Weight 53.8 kg 59.6 kg General appearance: PRESENT: no acute distress, well-developed, well-nourished Head exam: PRESENT: atraumatic, normocephalic Eye exam: PRESENT: conjunctiva pink, EOMI, PERRLA. ABSENT: scleral icterus Ear exam: PRESENT: normal external ear exam Mouth exam: PRESENT: moist, tongue midline Neck exam: ABSENT: carotid bruit, JVD, lymphadenopathy, thyromegaly Respiratory exam: PRESENT: clear to auscultation dianna. ABSENT: rales, rhonchi, wheezes Cardiovascular exam: PRESENT: RRR. ABSENT: diastolic murmur, rubs, systolic murmur Pulses: PRESENT: normal dorsalis pedis pul Vascular exam: PRESENT: normal capillary refill GI/Abdominal exam: PRESENT: normal bowel sounds, soft. ABSENT: distended, guarding, mass, organolmegaly, rebound, tenderness Rectal exam: PRESENT: deferred Extremities exam: PRESENT: full ROM. ABSENT: calf tenderness, clubbing, pedal edema Neurological exam: PRESENT: alert, awake, oriented to person, oriented to place, oriented to time, oriented to situation, CN II-XII grossly intact. ABSENT: motor sensory deficit Psychiatric exam: PRESENT: appropriate affect, normal mood. ABSENT: homicidal ideation, suicidal ideation Skin exam: PRESENT: dry, intact, warm. ABSENT: cyanosis, rash Results Laboratory Results: 10/10/18 07:33 10/09/18 06:39 10/10/18 07:33 WBC 3.3 L RBC 4.12 Hgb 10.8 L Hct 32.3 L MCV 78 L MCH 26.3 L MCHC 33.5 RDW 16.8 H Plt Count 177 Seg Neutrophils % Not Reportable Lymphocytes % Not Reportable Monocytes % Not Reportable Eosinophils % Not Reportable Basophils % Not Reportable Absolute Neutrophils Not Reportable Absolute Lymphocytes Not Reportable Absolute Monocytes Not Reportable Absolute Eosinophils Not Reportable Absolute Basophils Not Reportable Impressions: Abdomen/Pelvis CT 10/04/18 00:00 IMPRESSION: 1. Cannot exclude partial bowel obstruction secondary to a mass lesion at the superior aspect of the cecum in the ascending colon. 2. Cannot exclude an enteritis. 3. Cholelithiasis. Chest X-Ray 10/05/18 00:00 IMPRESSION: NO ACUTE RADIOGRAPHIC FINDING IN THE CHEST. Chest CT 10/08/18 00:00 IMPRESSION: 1. BILATERAL PLEURAL EFFUSIONS. LOWER LOBE CONSOLIDATIONS PRESUMABLY DUE TO COMPRESSIVE ATELECTASIS ALTHOUGH PNEUMONIA IS ANOTHER POSSIBILITY. 2. FINDINGS IN THE UPPER ABDOMEN RELATED TO RECENT SURGERY. Assessment & Plan - Diagnosis (1) Ascending colon malignant neoplasm Is this a current diagnosis for this admission?: Yes Plan: Pathology is back, she has a stage II colon cancer, since she did present with a full obstruction clinically we would consider adjuvant chemotherapy as she would be a high risk stage II colon cancer. We will discuss this further once she is recovered and is discharged. - Time Time Spent with patient: 35 or more minutes - Inpatient Certification Based on my medical assessment, after consideration of the patient's comorbidities, presenting symptoms, or acuity I expect that the services needed warrant INPATIENT care.: Yes I certify that my determination is in accordance with my understanding of Medicare's requirements for reasonable and necessary INPATIENT services [42 CFR 412.3e].: Yes Medical Necessity: Need For IV Fluids, Risk of Complication if Not Cared For in Hospital
[2018-10-10 11:01] LABS: ALANINE AMINOTRANSFERASE 235 U/L (9-52); ALBUMIN 1.6 g/dL (3.5-5.0); ALKALINE PHOSPHATASE 117 U/L (38-126); ASPARTATE AMINO TRANSFERASE 296 U/L (14-36); BILIRUBIN,DIRECT 0.4 mg/dL (0.0-0.4); BILIRUBIN,TOTAL 0.5 mg/dL (0.2-1.3); BLOOD UREA NITROGEN 15 mg/dL (7-20); GLUCOSE 117 mg/dL (75-110); PHOSPHORUS 2.2 mg/dL (2.5-4.5); POTASSIUM 3.8 mmol/L (3.6-5.0)
[2018-10-10 11:06] LABS: CARBON DIOXIDE 21 mmol/L (22-30); CHLORIDE 108 mmol/L (98-107); SODIUM 132.1 mmol/L (137-145)
[2018-10-10 11:13] LABS: PREALBUMIN < 3.0 mg/dL (17.6-36.0)
[2018-10-10 11:21] LABS: ANION GAP 3 (5-19)
[2018-10-10] MEDS: NORMAL SALINE 1000 ML 1,000 ML IV PRN (15:35)
[2018-10-10] MEDS: AMINO ACIDS 5%/D25W 1,000 ML IV PRN (15:35)
--- NOTE | 2018-10-10 21:15 | PDOC PROGRESS REPORT ---
Subjective Progress Note for:: 10/10/18 Subjective:: Feels better but slightly nauseated. Had flatus and small bm today. Reason For Visit: RIGHT COLON CANCER Physical Exam Vital Signs: Temp Pulse Resp BP Pulse Ox 98.9 F 116 H 22 H 125/65 91 L 10/10/18 19:00 10/10/18 19:00 10/10/18 19:00 10/10/18 19:00 10/10/18 19:00 Intake & Output 10/09/18 10/10/18 10/11/18 06:59 06:59 06:59 Intake Total 3400 2165 1999 Output Total 775 950 Balance 2625 1215 1999 Weight 53.8 kg 59.6 kg Exam: abdomen is soft with minimal tenderness along incision. Results Laboratory Results: 10/10/18 07:33 10/10/18 07:33 10/10/18 10/10/18 07:33 07:33 WBC 3.3 L RBC 4.12 Hgb 10.8 L Hct 32.3 L MCV 78 L MCH 26.3 L MCHC 33.5 RDW 16.8 H Plt Count 177 Seg Neutrophils % Not Reportable Lymphocytes % Not Reportable Monocytes % Not Reportable Eosinophils % Not Reportable Basophils % Not Reportable Absolute Neutrophils Not Reportable Absolute Lymphocytes Not Reportable Absolute Monocytes Not Reportable Absolute Eosinophils Not Reportable Absolute Basophils Not Reportable Sodium 132.1 L Potassium 3.8 Chloride 108 H Carbon Dioxide 21 L Anion Gap 3 L BUN 15 Creatinine 0.55 Est GFR ( Amer) > 60 Est GFR (Non-Af Amer) > 60 Glucose 117 H Calcium 8.0 L Phosphorus 2.2 L Total Bilirubin 0.5 AST 296 H ALT 235 H Alkaline Phosphatase 117 Total Protein 4.0 L Albumin 1.6 L Prealbumin < 3.0 L Impressions: Abdomen/Pelvis CT 10/04/18 00:00 IMPRESSION: 1. Cannot exclude partial bowel obstruction secondary to a mass lesion at the superior aspect of the cecum in the ascending colon. 2. Cannot exclude an enteritis. 3. Cholelithiasis. Chest X-Ray 10/05/18 00:00 IMPRESSION: NO ACUTE RADIOGRAPHIC FINDING IN THE CHEST. Chest CT 10/08/18 00:00 IMPRESSION: 1. BILATERAL PLEURAL EFFUSIONS. LOWER LOBE CONSOLIDATIONS PRESUMABLY DUE TO COMPRESSIVE ATELECTASIS ALTHOUGH PNEUMONIA IS ANOTHER POSSIBILITY. 2. FINDINGS IN THE UPPER ABDOMEN RELATED TO RECENT SURGERY. Assessment & Plan - Time Time Spent with patient: 15-24 minutes - Inpatient Certification Medical Necessity: Need Close Monitoring Due to Risk of Patient Decompensation, Need For IV Fluids, Risk of Complication if Not Cared For in Hospital - Plan Summary Plan Summary: Continue TPN for now.Hopefully nausea will subside and patient able to tolerate diet tomorrow then can stop TPN. Seen by Oncologist today for possible chemotherapy.
[2018-10-11 07:01] LABS: HEMATOCRIT 32.1 % (36.0-47.0); MEAN CORPUSCULAR HEMOGLOBIN 26.5 pg (27.0-33.4); MEAN CORPUSCULAR HGB CONC 34.4 g/dL (32.0-36.0); MEAN CORPUSCULAR VOLUME 77 fl (80-97); PLATELET COUNT 170 10^3/uL (150-450); RED BLOOD COUNT 4.16 10^6/uL (3.72-5.28); RED CELL DISTRIBUTION WIDTH 17.3 % (11.5-14.0); WHITE BLOOD COUNT 5.8 10^3/uL (4.0-10.5)
[2018-10-11 07:51] LABS: BASOPHILS % (MANUAL) 0 % (0-2); EOSINOPHILS % (MANUAL) 0 % (0-6)
[2018-10-11 07:59] LABS: ABSOLUTE LYMPHOCYTES# (MANUAL) 1.2 10^3/uL (0.5-4.7); ABSOLUTE MONOCYTES # (MANUAL) 0.5 10^3/uL (0.1-1.4); ABSOLUTE NEUTROPHILS# (MANUAL) 4.2 10^3/uL (1.7-8.2); ANISOCYTOSIS 2+; BAND NEUTROPHILS % (MANUAL) 3 % (3-5); BURR CELLS SLIGHT; LYMPHOCYTES % (MANUAL) 20 % (13-45); METAMYELOCYTES % (MANUAL) 2 % (0); MONOCYTES % (MANUAL) 8 % (3-13); OVALOCYTES 1+; PLATELET CLUMPS PRESENT; POIKILOCYTOSIS 1+; POLYCHROMASIA SLIGHT; SEGMENTED NEUTROPHILS % (MAN) 67 % (42-78); TOTAL CELLS COUNTED 100; TOXIC GRANULATION 1+
--- NOTE | 2018-10-11 08:29 | PDOC PROGRESS REPORT ---
Subjective Progress Note for:: 10/11/18 Subjective:: Patient seems better this morning, yesterday evening was able to tolerate a full liquid diet. Was able to eat most of that tray. She is hungry this morning and wants to advance her diet. She did have a small bowel movement and did pass gas yesterday. Reason For Visit: RIGHT COLON CANCER Physical Exam Vital Signs: Temp Pulse Resp BP Pulse Ox 98.3 F 108 H 22 H 135/69 H 92 10/11/18 03:00 10/11/18 03:00 10/11/18 03:00 10/11/18 03:00 10/11/18 03:00 Intake & Output 10/10/18 10/11/18 10/12/18 06:59 06:59 06:59 Intake Total 2165 2000 Output Total 950 300 Balance 1215 1700 Weight 59.6 kg 58.9 kg General appearance: PRESENT: no acute distress, well-developed, well-nourished Head exam: PRESENT: atraumatic, normocephalic Eye exam: PRESENT: conjunctiva pink, EOMI, PERRLA. ABSENT: scleral icterus Ear exam: PRESENT: normal external ear exam Mouth exam: PRESENT: moist, tongue midline Neck exam: ABSENT: carotid bruit, JVD, lymphadenopathy, thyromegaly Respiratory exam: PRESENT: clear to auscultation dianna. ABSENT: rales, rhonchi, wheezes Cardiovascular exam: PRESENT: RRR. ABSENT: diastolic murmur, rubs, systolic murmur Pulses: PRESENT: normal dorsalis pedis pul Vascular exam: PRESENT: normal capillary refill GI/Abdominal exam: PRESENT: normal bowel sounds, soft. ABSENT: distended, guarding, mass, organolmegaly, rebound, tenderness Rectal exam: PRESENT: deferred Extremities exam: PRESENT: full ROM. ABSENT: calf tenderness, clubbing, pedal edema Neurological exam: PRESENT: alert, awake, oriented to person, oriented to place, oriented to time, oriented to situation, CN II-XII grossly intact. ABSENT: motor sensory deficit Psychiatric exam: PRESENT: appropriate affect, normal mood. ABSENT: homicidal ideation, suicidal ideation Skin exam: PRESENT: dry, intact, warm. ABSENT: cyanosis, rash Results Laboratory Results: 10/11/18 06:23 10/10/18 07:33 10/10/18 10/10/18 10/11/18 07:33 07:33 06:23 WBC 3.3 L 5.8 RBC 4.12 4.16 Hgb 10.8 L 11.0 L Hct 32.3 L 32.1 L MCV 78 L 77 L MCH 26.3 L 26.5 L MCHC 33.5 34.4 RDW 16.8 H 17.3 H Plt Count 177 170 Seg Neutrophils % Not Reportable Not Reportable Lymphocytes % Not Reportable Not Reportable Monocytes % Not Reportable Not Reportable Eosinophils % Not Reportable Not Reportable Basophils % Not Reportable Not Reportable Absolute Neutrophils Not Reportable Not Reportable Absolute Lymphocytes Not Reportable Not Reportable Absolute Monocytes Not Reportable Not Reportable Absolute Eosinophils Not Reportable Not Reportable Absolute Basophils Not Reportable Not Reportable Sodium 132.1 L Potassium 3.8 Chloride 108 H Carbon Dioxide 21 L Anion Gap 3 L BUN 15 Creatinine 0.55 Est GFR ( Amer) > 60 Est GFR (Non-Af Amer) > 60 Glucose 117 H Calcium 8.0 L Phosphorus 2.2 L Total Bilirubin 0.5 AST 296 H ALT 235 H Alkaline Phosphatase 117 Total Protein 4.0 L Albumin 1.6 L Prealbumin < 3.0 L Impressions: Abdomen/Pelvis CT 10/04/18 00:00 IMPRESSION: 1. Cannot exclude partial bowel obstruction secondary to a mass lesion at the superior aspect of the cecum in the ascending colon. 2. Cannot exclude an enteritis. 3. Cholelithiasis. Chest X-Ray 10/05/18 00:00 IMPRESSION: NO ACUTE RADIOGRAPHIC FINDING IN THE CHEST. Chest CT 10/08/18 00:00 IMPRESSION: 1. BILATERAL PLEURAL EFFUSIONS. LOWER LOBE CONSOLIDATIONS PRESUMABLY DUE TO COMPRESSIVE ATELECTASIS ALTHOUGH PNEUMONIA IS ANOTHER POSSIBILITY. 2. FINDINGS IN THE UPPER ABDOMEN RELATED TO RECENT SURGERY. Assessment & Plan - Diagnosis (1) Ascending colon malignant neoplasm Is this a current diagnosis for this admission?: Yes Plan: Plan for chemotherapy as an outpatient. She seems to be improving but I will discuss with surgical team to consider advancing diet and stopping TPN. - Time Time Spent with patient: 35 or more minutes - Inpatient Certification Based on my medical assessment, after consideration of the patient's comorbidities, presenting symptoms, or acuity I expect that the services needed warrant INPATIENT care.: Yes I certify that my determination is in accordance with my understanding of Medicare's requirements for reasonable and necessary INPATIENT services [42 CFR 412.3e].: Yes Medical Necessity: Risk of Complication if Not Cared For in Hospital
--- NOTE | 2018-10-11 09:14 | PDOC PROGRESS REPORT ---
Subjective Progress Note for:: 10/11/18 Subjective:: feels better. nausea resolved. Reason For Visit: RIGHT COLON CANCER Physical Exam Vital Signs: Temp Pulse Resp BP Pulse Ox 99.0 F 101 H 18 120/63 93 10/11/18 08:16 10/11/18 08:16 10/11/18 08:16 10/11/18 08:16 10/11/18 08:16 Intake & Output 10/10/18 10/11/18 10/12/18 06:59 06:59 06:59 Intake Total 2165 2000 Output Total 950 300 Balance 1215 1700 Weight 59.6 kg 58.9 kg Exam: abdomen is soft and nontender Results Laboratory Results: 10/11/18 06:23 10/10/18 07:33 10/10/18 10/11/18 07:33 06:23 WBC 5.8 RBC 4.16 Hgb 11.0 L Hct 32.1 L MCV 77 L MCH 26.5 L MCHC 34.4 RDW 17.3 H Plt Count 170 Seg Neutrophils % Not Reportable Lymphocytes % Not Reportable Monocytes % Not Reportable Eosinophils % Not Reportable Basophils % Not Reportable Absolute Neutrophils Not Reportable Absolute Lymphocytes Not Reportable Absolute Monocytes Not Reportable Absolute Eosinophils Not Reportable Absolute Basophils Not Reportable Sodium 132.1 L Potassium 3.8 Chloride 108 H Carbon Dioxide 21 L Anion Gap 3 L BUN 15 Creatinine 0.55 Est GFR ( Amer) > 60 Est GFR (Non-Af Amer) > 60 Glucose 117 H Calcium 8.0 L Phosphorus 2.2 L Total Bilirubin 0.5 AST 296 H ALT 235 H Alkaline Phosphatase 117 Total Protein 4.0 L Albumin 1.6 L Prealbumin < 3.0 L Impressions: Abdomen/Pelvis CT 10/04/18 00:00 IMPRESSION: 1. Cannot exclude partial bowel obstruction secondary to a mass lesion at the superior aspect of the cecum in the ascending colon. 2. Cannot exclude an enteritis. 3. Cholelithiasis. Chest X-Ray 10/05/18 00:00 IMPRESSION: NO ACUTE RADIOGRAPHIC FINDING IN THE CHEST. Chest CT 10/08/18 00:00 IMPRESSION: 1. BILATERAL PLEURAL EFFUSIONS. LOWER LOBE CONSOLIDATIONS PRESUMABLY DUE TO COMPRESSIVE ATELECTASIS ALTHOUGH PNEUMONIA IS ANOTHER POSSIBILITY. 2. FINDINGS IN THE UPPER ABDOMEN RELATED TO RECENT SURGERY. Assessment & Plan - Time Time Spent with patient: 15-24 minutes - Inpatient Certification Medical Necessity: Need Close Monitoring Due to Risk of Patient Decompensation, Need For IV Fluids, Risk of Complication if Not Cared For in Hospital - Plan Summary Plan Summary: Stop TPN today and gradually increase po intake D/W Oncology
[2018-10-11] MEDS: ONDANSETRON HCL INJ/PF 4 MG/2 ML SDV IV PRN ×2 (13:55→21:17)
[2018-10-11] MEDS ORDERED: DEXTROSE 10%-WATER 1,000 ML IV PRN (15:39)
[2018-10-11] MEDS: FAMOTIDINE 20 MG TABLET PO SCH (21:17)
[2018-10-11] MEDS: MORPHINE SULFATE 10 MG/ML INJ IV PRN (23:36)
[2018-10-12] MEDS ORDERED: PROMETHAZINE HCL INJ 25 MG/1 ML VIAL IV PRN (07:24)
--- NOTE | 2018-10-12 08:49 | PDOC PROGRESS REPORT ---
Subjective Progress Note for:: 10/12/18 Subjective:: Pt had severe nausea starting yesterday after eating. Starting vomiting this am. Zofran was ineffective per pt and given phenergan, feels better. Did have BMs yesterday Reason For Visit: RIGHT COLON CANCER Physical Exam Vital Signs: Temp Pulse Resp BP Pulse Ox 98.4 F 104 H 22 H 124/51 L 97 10/12/18 07:00 10/12/18 07:00 10/12/18 07:00 10/12/18 07:00 10/12/18 07:00 Intake & Output 10/11/18 10/12/18 10/13/18 06:59 06:59 06:59 Intake Total 2000 787 Output Total 300 200 Balance 1700 587 Weight 58.9 kg 58.3 kg General appearance: PRESENT: no acute distress, well-developed, well-nourished Head exam: PRESENT: atraumatic, normocephalic Eye exam: PRESENT: conjunctiva pink, EOMI, PERRLA. ABSENT: scleral icterus Ear exam: PRESENT: normal external ear exam Mouth exam: PRESENT: moist, tongue midline Neck exam: ABSENT: carotid bruit, JVD, lymphadenopathy, thyromegaly Respiratory exam: PRESENT: clear to auscultation dianna. ABSENT: rales, rhonchi, wheezes Cardiovascular exam: PRESENT: RRR. ABSENT: diastolic murmur, rubs, systolic murmur Pulses: PRESENT: normal dorsalis pedis pul Vascular exam: PRESENT: normal capillary refill GI/Abdominal exam: PRESENT: normal bowel sounds, soft. ABSENT: distended, guarding, mass, organolmegaly, rebound, tenderness Rectal exam: PRESENT: deferred Extremities exam: PRESENT: full ROM. ABSENT: calf tenderness, clubbing, pedal edema Neurological exam: PRESENT: alert, awake, oriented to person, oriented to place, oriented to time, oriented to situation, CN II-XII grossly intact. ABSENT: motor sensory deficit Psychiatric exam: PRESENT: appropriate affect, normal mood. ABSENT: homicidal ideation, suicidal ideation Skin exam: PRESENT: dry, intact, warm. ABSENT: cyanosis, rash Results Laboratory Results: 10/11/18 06:23 10/10/18 07:33 Impressions: Abdomen/Pelvis CT 10/04/18 00:00 IMPRESSION: 1. Cannot exclude partial bowel obstruction secondary to a mass lesion at the superior aspect of the cecum in the ascending colon. 2. Cannot exclude an enteritis. 3. Cholelithiasis. Chest X-Ray 10/05/18 00:00 IMPRESSION: NO ACUTE RADIOGRAPHIC FINDING IN THE CHEST. Chest CT 10/08/18 00:00 IMPRESSION: 1. BILATERAL PLEURAL EFFUSIONS. LOWER LOBE CONSOLIDATIONS PRESUMABLY DUE TO COMPRESSIVE ATELECTASIS ALTHOUGH PNEUMONIA IS ANOTHER POSSIBILITY. 2. FINDINGS IN THE UPPER ABDOMEN RELATED TO RECENT SURGERY. Assessment & Plan - Diagnosis (1) Ascending colon malignant neoplasm Is this a current diagnosis for this admission?: Yes Plan: Severe nausea and vomiting, unsure of cause, will follow, d/w dr poe who will see pt today, I started NS at 100cc/hr stopped D10
--- NOTE | 2018-10-12 09:29 | PDOC PROGRESS REPORT ---
Subjective Progress Note for:: 10/12/18 Reason For Visit: RIGHT COLON CANCER post op rt hemicolectomy Physical Exam Vital Signs: Temp Pulse Resp BP Pulse Ox 98.4 F 104 H 22 H 124/51 L 97 10/12/18 07:00 10/12/18 07:00 10/12/18 07:00 10/12/18 07:00 10/12/18 07:00 Intake & Output 10/11/18 10/12/18 10/13/18 06:59 06:59 06:59 Intake Total 2000 787 Output Total 300 200 Balance 1700 587 Weight 58.9 kg 58.3 kg General appearance: PRESENT: mild distress Respiratory exam: PRESENT: decreased breath sounds - decreased bs rt base rhonchi bilat, rhonchi GI/Abdominal exam: PRESENT: other - abd tympanitic, distendeed min incisional tenderness dressing dry Extremities exam: PRESENT: full ROM - no calf or thigh tenderness. no swelling Results Laboratory Results: 10/11/18 06:23 10/10/18 07:33 Impressions: Abdomen/Pelvis CT 10/04/18 00:00 IMPRESSION: 1. Cannot exclude partial bowel obstruction secondary to a mass lesion at the superior aspect of the cecum in the ascending colon. 2. Cannot exclude an enteritis. 3. Cholelithiasis. Chest X-Ray 10/05/18 00:00 IMPRESSION: NO ACUTE RADIOGRAPHIC FINDING IN THE CHEST. Chest CT 10/08/18 00:00 IMPRESSION: 1. BILATERAL PLEURAL EFFUSIONS. LOWER LOBE CONSOLIDATIONS PRESUMABLY DUE TO COMPRESSIVE ATELECTASIS ALTHOUGH PNEUMONIA IS ANOTHER POSSIBILITY. 2. FINDINGS IN THE UPPER ABDOMEN RELATED TO RECENT SURGERY. Assessment & Plan - Diagnosis (1) Cecum mass Is this a current diagnosis for this admission?: Yes - Inpatient Certification Medical Necessity: Need Close Monitoring Due to Risk of Patient Decompensation, Need For IV Fluids - Plan Summary Plan Summary: pt is about 1 wk post rt hemicolectomy for cecal mass, now increased nausea, vomiting' abd distension sl tachycardia malnutrition plan repeat lft, and restart tpn if ok kub, cxr cbc, npo may need ng tube, will check kub
[2018-10-12] MEDS ORDERED: DEXTROSE 5%-LACTATED RINGERS 500 ML IV PRN (09:31)
--- NOTE | 2018-10-12 10:04 | RADIOLOGY REPORT (SQ) ---
EXAM DESCRIPTION: KUB/ABDOMEN (SINGLE VIEW) COMPLETED DATE/TIME: 10/12/2018 9:52 am REASON FOR STUDY: vomiting COMPARISON: CT abdomen pelvis 10/16/2018, CT chest 10/08/2018 NUMBER OF VIEWS: One view. TECHNIQUE: Supine radiographic image of the abdomen acquired. LIMITATIONS: None. FINDINGS: BOWEL GAS PATTERN: Grossly nonobstructive bowel gas pattern, with air nondistended small b owel, stomach, colon. Air in the rectosigmoid. . CALCIFICATIONS: No suspicious calcifications. SOFT TISSUES: No gross mass or suggestion of organomegaly. HARDWARE: Surgical ria at the right upper quadrant post right hemicolectomy. Midline anterior ab dominal wall skin ria. BONES: No acute fracture. No worrisome bone lesions. OTHER: No other significant finding. IMPRESSION: Nonobstructive bowel gas pattern TECHNICAL DOCUMENTATION: JOB ID: [id number] [employer]- All Rights Reserved Reading location - IP/workstation name: [email or web address]
--- NOTE | 2018-10-12 10:06 | RADIOLOGY REPORT (SQ) ---
EXAM DESCRIPTION: CHEST SINGLE VIEW COMPLETED DATE/TIME: 10/12/2018 9:52 am REASON FOR STUDY: r/o pneumonmia COMPARISON: CT chest 10/08/2018 AP chest 10/05/2018 EXAM PARAMETERS: NUMBER OF VIEWS: One view. TECHNIQUE: Single frontal radiographic view of the chest acquired. RADIATION DOSE: NA LIMITATIONS: None. FINDINGS: LUNGS AND PLEURA: There is bibasilar airspace disease right greater than left with trace b ilateral pleural effusions. This is similar compared to CT chest 10/08/2018. No pneumothorax MEDIASTINUM AND HILAR STRUCTURES: No masses. Contour normal. HEART AND VASCULAR STRUCTURES: Heart normal in size. Normal vasculature. BONES: No acute findings. HARDWARE: Left jugular central line tip superior vena cava OTHER: No other significant finding. IMPRESSION: Bibasilar airspace disease atelectasis versus pneumonia right greater than left. Trace bilateral pleural effusions TECHNICAL DOCUMENTATION: JOB ID: [id number] [employer]- All Rights Reserved Reading location - IP/workstation name: [email or web address]
[2018-10-12] MEDS: FAMOTIDINE 20 MG TABLET PO SCH ×2 (11:18→21:51)
[2018-10-12] MEDS: ALBUMIN HUMAN 12.5 GM/50 ML RTUINJ IV SCH ×2 (11:39→12:47)
[2018-10-12] MEDS: NORMAL SALINE 1000 ML 1,000 ML IV PRN (12:52)
[2018-10-12 13:55] LABS: HEMATOCRIT 27.2 % (36.0-47.0); HEMOGLOBIN 9.3 g/dL (12.0-15.5); MEAN CORPUSCULAR HEMOGLOBIN 26.7 pg (27.0-33.4); MEAN CORPUSCULAR HGB CONC 34.2 g/dL (32.0-36.0); MEAN CORPUSCULAR VOLUME 78 fl (80-97); PLATELET COUNT 120 10^3/uL (150-450); RED BLOOD COUNT 3.49 10^6/uL (3.72-5.28); RED CELL DISTRIBUTION WIDTH 16.9 % (11.5-14.0); WHITE BLOOD COUNT 6.5 10^3/uL (4.0-10.5)
[2018-10-12 14:00] LABS: ALANINE AMINOTRANSFERASE 77 U/L (9-52); ALBUMIN 2.1 g/dL (3.5-5.0); ALKALINE PHOSPHATASE 88 U/L (38-126); ASPARTATE AMINO TRANSFERASE 52 U/L (14-36); BILIRUBIN,DIRECT 0.8 mg/dL (0.0-0.4); BILIRUBIN,TOTAL 1.1 mg/dL (0.2-1.3); TOTAL PROTEIN 4.3 g/dL (6.3-8.2)
[2018-10-12] MEDS ORDERED: INSULIN REG, HUMAN 100 UNIT/ML 3 ML VIAL (PYX) SUBCUT PRN (14:29)
[2018-10-12 14:44] LABS: ABSOLUTE LYMPHOCYTES# (MANUAL) 0.7 10^3/uL (0.5-4.7); ABSOLUTE MONOCYTES # (MANUAL) 0.4 10^3/uL (0.1-1.4); ABSOLUTE NEUTROPHILS# (MANUAL) 5.5 10^3/uL (1.7-8.2); BAND NEUTROPHILS % (MANUAL) 10 % (3-5); BASOPHILS % (MANUAL) 0 % (0-2); EOSINOPHILS % (MANUAL) 0 % (0-6); LYMPHOCYTES % (MANUAL) 10 % (13-45); METAMYELOCYTES % (MANUAL) 2 % (0); MONOCYTES % (MANUAL) 6 % (3-13); SEGMENTED NEUTROPHILS % (MAN) 72 % (42-78); TOTAL CELLS COUNTED 100
[2018-10-12 14:45] LABS: ANISOCYTOSIS 1+; PLATELET COMMENT ADEQUATE; POLYCHROMASIA 1+; TOXIC GRANULATION 1+
[2018-10-13] MEDS: NORMAL SALINE 1000 ML 1,000 ML IV PRN ×3 (00:44→22:14)
--- NOTE | 2018-10-13 08:45 | PDOC PROGRESS REPORT ---
Subjective Progress Note for:: 10/13/18 Subjective:: Patient seems a little bit better, did not have nausea throughout the day yesterday, was able to tolerate liquids, did have a couple liquid bowel movements, did get up and move around the olivares. Reason For Visit: RIGHT COLON CANCER Physical Exam Vital Signs: Temp Pulse Resp BP Pulse Ox 99.6 F 115 H 20 121/59 L 93 10/13/18 07:56 10/13/18 07:56 10/13/18 07:56 10/13/18 07:56 10/13/18 07:56 Intake & Output 10/12/18 10/13/18 10/14/18 06:59 06:59 06:59 Intake Total 1787 1168 Output Total 200 Balance 1587 1168 Weight 58.3 kg 58.9 kg Results Laboratory Results: 10/12/18 13:20 10/10/18 07:33 10/12/18 10/12/18 13:20 13:20 WBC 6.5 RBC 3.49 L Hgb 9.3 L Hct 27.2 L MCV 78 L MCH 26.7 L MCHC 34.2 RDW 16.9 H Plt Count 120 L Seg Neutrophils % Not Reportable Lymphocytes % Not Reportable Monocytes % Not Reportable Eosinophils % Not Reportable Basophils % Not Reportable Absolute Neutrophils Not Reportable Absolute Lymphocytes Not Reportable Absolute Monocytes Not Reportable Absolute Eosinophils Not Reportable Absolute Basophils Not Reportable Total Bilirubin 1.1 AST 52 H ALT 77 H Alkaline Phosphatase 88 Total Protein 4.3 L Albumin 2.1 L Impressions: Abdomen/Pelvis CT 10/04/18 00:00 IMPRESSION: 1. Cannot exclude partial bowel obstruction secondary to a mass lesion at the superior aspect of the cecum in the ascending colon. 2. Cannot exclude an enteritis. 3. Cholelithiasis. Chest CT 10/08/18 00:00 IMPRESSION: 1. BILATERAL PLEURAL EFFUSIONS. LOWER LOBE CONSOLIDATIONS PRESUMABLY DUE TO COMPRESSIVE ATELECTASIS ALTHOUGH PNEUMONIA IS ANOTHER POSSIBILITY. 2. FINDINGS IN THE UPPER ABDOMEN RELATED TO RECENT SURGERY. Chest X-Ray 10/12/18 00:00 IMPRESSION: Bibasilar airspace disease atelectasis versus pneumonia right greater than left. Trace bilateral pleural effusions KUB X-Ray 10/12/18 00:00 IMPRESSION: Nonobstructive bowel gas pattern Assessment & Plan - Diagnosis (1) Ascending colon malignant neoplasm Is this a current diagnosis for this admission?: Yes Plan: Continue to follow, seems a little bit better today, surgical team will follow with which fluids to change to and advancing diet as they see fit.
[2018-10-13] MEDS: FAMOTIDINE 20 MG TABLET PO SCH ×2 (09:32→22:22)
--- NOTE | 2018-10-13 16:02 | RADIOLOGY REPORT (SQ) ---
EXAM DESCRIPTION: CHEST SINGLE VIEW COMPLETED DATE/TIME: 10/13/2018 3:53 pm REASON FOR STUDY: shortness of breath COMPARISON: Chest films 10/05/2018, 10/12/2018 EXAM PARAMETERS: NUMBER OF VIEWS: One view. TECHNIQUE: Single frontal radiographic view of the chest acquired. RADIATION DOSE: NA LIMITATIONS: None. FINDINGS: LUNGS AND PLEURA: Trace bilateral pleural effusions with bibasilar airspace disease right greater than left. This is unchanged from chest film 10/12/2018. No pneumothorax MEDIASTINUM AND HILAR STRUCTURES: No masses. Contour normal. HEART AND VASCULAR STRUCTURES: Heart normal in size. Normal vasculature. BONES: No acute findings. HARDWARE: Left jugular central line tip superior vena cava. OTHER: Mild gaseous distention of the stomach IMPRESSION: Trace bilateral pleural effusions with bibasilar airspace disease right greater than lef t. This is similar compared to 10/12/2018. TECHNICAL DOCUMENTATION: JOB ID: [id number] [employer]- All Rights Reserved Reading location - IP/workstation name: [email or web address]
[2018-10-13] MEDS ORDERED: FUROSEMIDE INJ/PF 20 MG/2 ML SDV IV ONE (16:30)
[2018-10-13] MEDS ORDERED: ALBUTEROL SULFATE 0.083% NEB 2.5 MG/3 ML AMPUL NEB ONE (17:30)
--- NOTE | 2018-10-13 20:42 | PDOC PROGRESS REPORT ---
Subjective Progress Note for:: 10/13/18 Subjective:: Denies any pains Wants chocolate flavored Ensure- ordered and told nurse. Reason For Visit: RIGHT COLON CANCER Physical Exam Vital Signs: Temp Pulse Resp BP Pulse Ox 100.4 F 110 H 20 117/57 L 93 10/13/18 15:41 10/13/18 18:30 10/13/18 18:30 10/13/18 15:41 10/13/18 18:30 Intake & Output 10/12/18 10/13/18 10/14/18 06:59 06:59 06:59 Intake Total 1787 1168 1740 Output Total 200 Balance 1587 1168 1740 Weight 58.3 kg 58.9 kg Exam: abdomen is soft nontender Looks weak Results Laboratory Results: 10/12/18 13:20 10/10/18 07:33 Impressions: Abdomen/Pelvis CT 10/04/18 00:00 IMPRESSION: 1. Cannot exclude partial bowel obstruction secondary to a mass lesion at the superior aspect of the cecum in the ascending colon. 2. Cannot exclude an enteritis. 3. Cholelithiasis. Chest CT 10/08/18 00:00 IMPRESSION: 1. BILATERAL PLEURAL EFFUSIONS. LOWER LOBE CONSOLIDATIONS PRESUMABLY DUE TO COMPRESSIVE ATELECTASIS ALTHOUGH PNEUMONIA IS ANOTHER POSSIBILITY. 2. FINDINGS IN THE UPPER ABDOMEN RELATED TO RECENT SURGERY. KUB X-Ray 10/12/18 00:00 IMPRESSION: Nonobstructive bowel gas pattern Chest X-Ray 10/13/18 00:00 IMPRESSION: Trace bilateral pleural effusions with bibasilar airspace disease right greater than left. This is similar compared to 10/12/2018. Assessment & Plan - Time Time Spent with patient: 15-24 minutes - Inpatient Certification Medical Necessity: Need Close Monitoring Due to Risk of Patient Decompensation, Need For IV Fluids, Risk of Complication if Not Cared For in Hospital - Plan Summary Plan Summary: Need to increase po intake if not need to resume TPN or Dobhoff tube feeds PT to increase activity
[2018-10-14] MEDS ORDERED: ALBUTEROL SULFATE 0.083% NEB 2.5 MG/3 ML AMPUL NEB ONE (01:15)
[2018-10-14] MEDS ORDERED: FUROSEMIDE INJ/PF 20 MG/2 ML SDV IV ONE (01:15)
[2018-10-14] MEDS: NORMAL SALINE 1000 ML 1,000 ML IV PRN (08:10)
[2018-10-14 08:11] LABS: HEMATOCRIT 25.5 % (36.0-47.0); HEMOGLOBIN 8.7 g/dL (12.0-15.5); MEAN CORPUSCULAR HEMOGLOBIN 26.8 pg (27.0-33.4); MEAN CORPUSCULAR HGB CONC 34.3 g/dL (32.0-36.0); MEAN CORPUSCULAR VOLUME 78 fl (80-97); PLATELET COUNT 102 10^3/uL (150-450); RED BLOOD COUNT 3.26 10^6/uL (3.72-5.28); RED CELL DISTRIBUTION WIDTH 16.6 % (11.5-14.0); WHITE BLOOD COUNT 4.5 10^3/uL (4.0-10.5)
[2018-10-14 08:18] LABS: ALANINE AMINOTRANSFERASE 43 U/L (9-52); ALBUMIN 1.7 g/dL (3.5-5.0); ALKALINE PHOSPHATASE 60 U/L (38-126); ANION GAP 8 (5-19); ASPARTATE AMINO TRANSFERASE 48 U/L (14-36); BILIRUBIN,DIRECT 1.7 mg/dL (0.0-0.4); BILIRUBIN,TOTAL 2.3 mg/dL (0.2-1.3); BLOOD UREA NITROGEN 15 mg/dL (7-20); CALCIUM 7.1 mg/dL (8.4-10.2); CARBON DIOXIDE 20 mmol/L (22-30); CHLORIDE 107 mmol/L (98-107); GLUCOSE 99 mg/dL (75-110); SODIUM 134.6 mmol/L (137-145)
[2018-10-14 08:25] LABS: POTASSIUM 2.6 mmol/L (3.6-5.0)
[2018-10-14 08:46] LABS: ABSOLUTE LYMPHOCYTES# (MANUAL) 0.3 10^3/uL (0.5-4.7); ABSOLUTE MONOCYTES # (MANUAL) 0.3 10^3/uL (0.1-1.4); ABSOLUTE NEUTROPHILS# (MANUAL) 3.9 10^3/uL (1.7-8.2); BAND NEUTROPHILS % (MANUAL) 9 % (3-5); BASOPHILS % (MANUAL) 0 % (0-2); EOSINOPHILS % (MANUAL) 0 % (0-6); LYMPHOCYTES % (MANUAL) 7 % (13-45); METAMYELOCYTES % (MANUAL) 2 % (0); MONOCYTES % (MANUAL) 7 % (3-13); NUCLEATED RED BLOOD CELLS 1 /100 WBC (0); SEGMENTED NEUTROPHILS % (MAN) 75 % (42-78); TOTAL CELLS COUNTED 100
[2018-10-14 08:47] LABS: ANISOCYTOSIS 1+; HYPOCHROMASIA SLIGHT; PLATELET COMMENT DECREASED
[2018-10-14] MEDS ORDERED: ALBUTEROL SULFATE 0.083% NEB 2.5 MG/3 ML AMPUL NEB PRN (11:49)
--- NOTE | 2018-10-14 11:59 | PDOC CONSULTATION ---
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 She is status post right hemicolectomy on 10/05/2018. Patient had issues with his feeding during hospitalization. She was on TPN for some time which was recently stopped and now she is on clear liquids. She is on 100 mL/h of normal saline currently. Patient developed respiratory distress and hypoxemia. She is currently on 50% oxygen via facemask. When I put the bed flat she desaturated to 80s. Chest x-ray positive for fluid overload and bilateral pleural effusion. She also has lower extremity edema. Past Medical History Medical History: None Psychiatric Medical History: Denies: Depression Past Surgical History Past Surgical History: Reports: Other - Right hemicolectomy Social History Smoking Status: Current Every Day Smoker Cigarettes Packs Per Day: 0.5 Number of Years Smokin Last Time Smoked: yesterday Frequency of Alcohol Use: None Hx Recreational Drug Use: No Hx Prescription Drug Abuse: No - Advance Directive Resuscitation Status: Full Code Family History Family History: None Parental Family History Reviewed: Yes Children Family History Reviewed: Yes Sibling(s) Family History Reviewed.: Yes Medication/Allergy Home Medications: No Home Medications 10/04/18 Allergies/Adverse Reactions: No Known Allergies Allergy (Verified 10/04/18 09:59) Review of Systems All systems: reviewed and no additional remarkable complaints except as stated Physical Exam Vital Signs: Temp Pulse Resp BP Pulse Ox 97.6 F 110 H 22 H 106/45 L 98 10/14/18 07:52 10/14/18 07:52 10/14/18 07:52 10/14/18 07:52 10/14/18 11:31 Intake & Output 10/13/18 10/14/18 10/15/18 06:59 06:59 06:59 Intake Total 1168 2365 993 Balance 1168 2365 993 Weight 129 lb 13.636 oz 133 lb 6.075 oz General appearance: PRESENT: cooperative, thin, other - Tachypnea, and moderate respiratory distress Head exam: PRESENT: atraumatic, normocephalic Eye exam: PRESENT: PERRLA. ABSENT: conjunctival injection, nystagmus, scleral icterus Ear exam: ABSENT: bleeding, drainage Mouth exam: PRESENT: moist. ABSENT: neck supple Throat exam: ABSENT: post pharyngeal erythema, tonsillar erythema Neck exam: ABSENT: meningismus, tenderness, tracheostomy Respiratory exam: PRESENT: accessory muscle use, crackles, rhonchi, tachypnea Pulses: PRESENT: normal radial pulses, +2 pedal pulses bilateral GI/Abdominal exam: PRESENT: hypoactive bowel sounds, soft. ABSENT: tenderness Rectal exam: PRESENT: deferred Extremities exam: PRESENT: pedal edema, +2 edema. ABSENT: joint swelling Musculoskeletal exam: PRESENT: ambulatory, normal inspection. ABSENT: deformity Neurological exam: PRESENT: alert, awake, oriented to person, oriented to place, oriented to time, oriented to situation. ABSENT: ataxia Psychiatric exam: ABSENT: agitated, anxious Skin exam: PRESENT: other - Incision is dry and intact Results Laboratory Results: 10/14/18 07:34 10/14/18 07:34 10/14/18 10/14/18 07:34 07:34 WBC 4.5 RBC 3.26 L Hgb 8.7 L Hct 25.5 L MCV 78 L MCH 26.8 L MCHC 34.3 RDW 16.6 H Plt Count 102 L Seg Neutrophils % Not Reportable Lymphocytes % Not Reportable Monocytes % Not Reportable Eosinophils % Not Reportable Basophils % Not Reportable Absolute Neutrophils Not Reportable Absolute Lymphocytes Not Reportable Absolute Monocytes Not Reportable Absolute Eosinophils Not Reportable Absolute Basophils Not Reportable Sodium 134.6 L Potassium 2.6 L* Chloride 107 Carbon Dioxide 20 L Anion Gap 8 BUN 15 Creatinine 0.54 Est GFR ( Amer) > 60 Est GFR (Non-Af Amer) > 60 Glucose 99 Calcium 7.1 L Total Bilirubin 2.3 H AST 48 H ALT 43 Alkaline Phosphatase 60 Total Protein 4.0 L Albumin 1.7 L Impressions: Abdomen/Pelvis CT 10/04/18 00:00 IMPRESSION: 1. Cannot exclude partial bowel obstruction secondary to a mass lesion at the superior aspect of the cecum in the ascending colon. 2. Cannot exclude an enteritis. 3. Cholelithiasis. Chest CT 10/08/18 00:00 IMPRESSION: 1. BILATERAL PLEURAL EFFUSIONS. LOWER LOBE CONSOLIDATIONS PRESUMABLY DUE TO COMPRESSIVE ATELECTASIS ALTHOUGH PNEUMONIA IS ANOTHER POSSIBILITY. 2. FINDINGS IN THE UPPER ABDOMEN RELATED TO RECENT SURGERY. KUB X-Ray 10/12/18 00:00 IMPRESSION: Nonobstructive bowel gas pattern Chest X-Ray 10/13/18 00:00 IMPRESSION: Trace bilateral pleural effusions with bibasilar airspace disease right greater than left. This is similar compared to 10/12/2018. Assessment & Plan - Diagnosis (1) CHF (congestive heart failure) Is this a current diagnosis for this admission?: Yes Plan: Due to volume overload. Will start IV Lasix now. And continue Lasix daily. Check echocardiogram. Daily weights. Strict I&O. Check x-ray tomorrow. Monit or renal function (2) Acute respiratory failure Is this a current diagnosis for this admission?: Yes Plan: Due to congestive heart failure. Continue oxygen supplements as needed. Wean as tolerated. (3) Cecum mass Is this a current diagnosis for this admission?: Yes Plan: Status post right hemicolectomy. 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 Oncology is following. (4) Bowel obstruction Qualifiers: Intestinal obstruction type: unspecified Intestinal obstruction extent: unspecified extent Qualified Code(s): K56.609 - Unspecified intestinal obstruction, unspecified as to partial versus complete obstruction Is this a current diagnosis for this admission?: Yes Plan: Status post right hemicolectomy. Continue clear liquid diet. Advance per surgery. (5) Anemia Is this a current diagnosis for this admission?: Yes Plan: Postoperative blood loss anemia. Continue to monitor hemoglobin hematocrit. Transfuse if needed. (6) Hypokalemia Is this a current diagnosis for this admission?: Yes Plan: Replace with IV potassium. Monitor livels. - Plan Summary Plan Summary: Thank you for the consult. We will follow with you.
[2018-10-14] MEDS: FAMOTIDINE 20 MG TABLET PO SCH ×2 (12:19→22:56)
[2018-10-14] MEDS: FUROSEMIDE INJ/PF 40 MG/4 ML SDV IV SCH (12:58)
[2018-10-14] MEDS: POTASSI CL 20 MEQ/50 ML RIDER 20 MEQ/50 ML RTUPB IV SCH ×3 (12:59→17:06)
[2018-10-15 07:53] LABS: HEMATOCRIT 26.1 % (36.0-47.0); HEMOGLOBIN 8.9 g/dL (12.0-15.5); MEAN CORPUSCULAR HEMOGLOBIN 26.9 pg (27.0-33.4); MEAN CORPUSCULAR HGB CONC 34.3 g/dL (32.0-36.0); MEAN CORPUSCULAR VOLUME 79 fl (80-97); PLATELET COUNT 105 10^3/uL (150-450); RED BLOOD COUNT 3.32 10^6/uL (3.72-5.28); RED CELL DISTRIBUTION WIDTH 16.8 % (11.5-14.0); WHITE BLOOD COUNT 4.9 10^3/uL (4.0-10.5)
[2018-10-15 08:13] LABS: ANION GAP 8 (5-19); BLOOD UREA NITROGEN 19 mg/dL (7-20); CALCIUM 7.3 mg/dL (8.4-10.2); CARBON DIOXIDE 23 mmol/L (22-30); CHLORIDE 104 mmol/L (98-107); GLUCOSE 93 mg/dL (75-110); SODIUM 135.4 mmol/L (137-145)
[2018-10-15 08:19] LABS: POTASSIUM 2.4 mmol/L (3.6-5.0)
[2018-10-15] MEDS ORDERED: DEXTROSE 40% GEL 15 GM TUBE PO PRN ×2 (08:30)
[2018-10-15] MEDS ORDERED: DEXTROSE 50%-WATER 25 GM/50 ML DISP.SYRIN IV PRN ×2 (08:30)
[2018-10-15] MEDS ORDERED: GLUCAGON,HUMAN RECOMB 1 MG INJ SUBCUT PRN (08:30)
--- NOTE | 2018-10-15 08:32 | PDOC PROGRESS REPORT ---
Subjective Progress Note for:: 10/15/18 Subjective:: I was called to rapid response. Patient was hypoxemic. She was descending in the mid 80s on facemask. She now on nonrebreather. She is satting in the mid 90s now. She is tachypneic. She is also complained of abdominal pain. Reason For Visit: RIGHT COLON CANCER Physical Exam Vital Signs: Temp Pulse Resp BP Pulse Ox 98.4 F 108 H 22 H 113/56 L 90 L 10/15/18 03:48 10/15/18 03:48 10/15/18 03:48 10/15/18 03:48 10/14/18 23:22 Intake & Output 10/14/18 10/15/18 10/16/18 06:59 06:59 06:59 Intake Total 2365 2964 Balance 2365 2964 Weight 133 lb 6.075 oz 129 lb 13.636 oz General appearance: PRESENT: severe distress, thin Head exam: PRESENT: atraumatic, normocephalic Eye exam: ABSENT: conjunctival injection Mouth exam: PRESENT: moist, neck supple Neck exam: ABSENT: meningismus, tenderness Respiratory exam: PRESENT: accessory muscle use, rales Cardiovascular exam: PRESENT: tachycardia GI/Abdominal exam: PRESENT: diminished bowel sounds, guarding, rigid, tenderness, other - And is saturated with a foul-smelling drainage Extremities exam: PRESENT: +2 edema Neurological exam: PRESENT: alert, awake, oriented to person, oriented to place, oriented to time, oriented to situation Psychiatric exam: PRESENT: anxious Results Laboratory Results: 10/15/18 07:19 10/14/18 10/14/18 10/15/18 07:34 07:34 07:19 WBC 4.5 4.9 RBC 3.26 L 3.32 L Hgb 8.7 L 8.9 L Hct 25.5 L 26.1 L MCV 78 L 79 L MCH 26.8 L 26.9 L MCHC 34.3 34.3 RDW 16.6 H 16.8 H Plt Count 102 L 105 L Seg Neutrophils % Not Reportable Lymphocytes % Not Reportable Monocytes % Not Reportable Eosinophils % Not Reportable Basophils % Not Reportable Absolute Neutrophils Not Reportable Absolute Lymphocytes Not Reportable Absolute Monocytes Not Reportable Absolute Eosinophils Not Reportable Absolute Basophils Not Reportable Sodium 134.6 L Potassium 2.6 L* Chloride 107 Carbon Dioxide 20 L Anion Gap 8 BUN 15 Creatinine 0.54 Est GFR ( Amer) > 60 Est GFR (Non-Af Amer) > 60 Glucose 99 Calcium 7.1 L Total Bilirubin 2.3 H AST 48 H ALT 43 Alkaline Phosphatase 60 Total Protein 4.0 L Albumin 1.7 L Impressions: Abdomen/Pelvis CT 10/04/18 00:00 IMPRESSION: 1. Cannot exclude partial bowel obstruction secondary to a mass lesion at the superior aspect of the cecum in the ascending colon. 2. Cannot exclude an enteritis. 3. Cholelithiasis. Chest CT 10/08/18 00:00 IMPRESSION: 1. BILATERAL PLEURAL EFFUSIONS. LOWER LOBE CONSOLIDATIONS PRESUMABLY DUE TO COMPRESSIVE ATELECTASIS ALTHOUGH PNEUMONIA IS ANOTHER POSSIBILITY. 2. FINDINGS IN THE UPPER ABDOMEN RELATED TO RECENT SURGERY. KUB X-Ray 10/12/18 00:00 IMPRESSION: Nonobstructive bowel gas pattern Chest X-Ray 10/13/18 00:00 IMPRESSION: Trace bilateral pleural effusions with bibasilar airspace disease right greater than left. This is similar compared to 10/12/2018. Assessment & Plan - Diagnosis (1) Acute respiratory failure Is this a current diagnosis for this admission?: Yes Plan: Due to congestive heart failure. Continue nonrebreather oxygen supplements as needed. Wean as tolerated. Get ABG stat. (2) Abdominal pain Qualifiers: Abdominal location: unspecified location Qualified Code(s): R10.9 - Unspecified abdominal pain Is this a current diagnosis for this admission?: Yes Plan: Abdomen is tender, distended, dressing is saturated with foul-smelling drainage at the lower part of the incision. We will get a stat CT of the abdomen was contrast. (3) CHF (congestive heart failure) Is this a current diagnosis for this admission?: Yes Plan: Due to volume overload. 40 mg IV Lasix now. Continue daily. Follow echocardiogram. Strict I&O. CT scan of the chest stat. Monitor renal function (4) Cecum mass Is this a current diagnosis for this admission?: Yes Plan: Status post right hemicolectomy. 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 Oncology is following. (5) Bowel obstruction Qualifiers: Intestinal obstruction type: unspecified Intestinal obstruction extent: unspecified extent Qualified Code(s): K56.609 - Unspecified intestinal obstruction, unspecified as to partial versus complete obstruction Is this a current diagnosis for this admission?: Yes Plan: Status post right hemicolectomy. On clear liquid diet. We will make her n.p.o. for now. (6) Anemia Is this a current diagnosis for this admission?: Yes Plan: Postoperative blood loss anemia. Continue to monitor hemoglobin hematocrit. Transfuse if needed. (7) Hypokalemia Is this a current diagnosis for this admission?: Yes Plan: Replace with IV potassium. Monitor levels. - Time Time Spent with patient: 35 or more minutes Total Critical Time (Minutes): 36
--- NOTE | 2018-10-15 08:59 | RADIOLOGY REPORT (SQ) ---
EXAM DESCRIPTION: CT CHEST WITHOUT COMPLETED DATE/TIME: 10/15/2018 8:45 am REASON FOR STUDY: post op SBO COMPARISON: CT chest 10/08/2018 Chest x-ray 10/13/2018 KUB 10/12/2018 TECHNIQUE: CT scan performed of the chest without intravenous contrast. Images reviewed with lung, soft tissue and bone windows. Reconstructed coronal and sagittal MPR images reviewed. All images st ored on PACS. All CT scanners at this facility use dose modulation, iterative reconstruction, and/or weight based d osing when appropriate to reduce radiation dose to as low as reasonably achievable (ALARA). [facility]: Dose Right [facility]: CareDose [facility]: Dose Right [facility]: Teradose 4D [facility]: [employer] RADIATION DOSE: CT Rad equipment meets quality standard of care and radiation dose reduction techniq ues were employed. CTDIvol: 9.8 mGy. DLP: 309 mGy-cm. mGy. LIMITATIONS: No technical limitations. FINDINGS: LUNGS AND PLEURA: Since the prior chest CT 10/08/2018, patient has developed patchy bilater al upper lobe airspace disease worrisome for pneumonia right greater than left. Since the prior study, patient has developed bilateral lower lobe collapse and consolidation, and rig ht middle lobe collapse and consolidation. Bronchi are patent. Trace bilateral pleural effusions. No pneumothorax. HILAR AND MEDIASTINAL STRUCTURES: Mildly enlarged right paratracheal, precarinal, and bilateral hilar nodes HEART AND VASCULAR STRUCTURES: No aneurysm. No pericardial effusion. UPPER ABDOMEN: Please see CT abdomen pelvis same date THYROID AND OTHER SOFT TISSUES: No masses. No adenopathy. BONES: No significant finding. HARDWARE: None in the chest. OTHER: No other significant findings. IMPRESSION: Bilateral lower lobe collapse and consolidation, right middle lobe collapse and consolid ation Trace bilateral pleural effusions New bilateral upper lobe airspace disease worrisome for pneumonia TECHNICAL DOCUMENTATION: JOB ID: [id number] Quality ID # 436: Final reports with documentation of one or more dose reduction techniques (e.g., Au tomated exposure control, adjustment of the mA and/or kV according to patient size, use of iterative reconstruction technique) 2010 [employer]- All Rights Reserved Reading location - IP/workstation name: [email or web address]
[2018-10-15] MEDS ORDERED: VANCOMYCIN HCL 1,000 MG in DEXTROSE 5%-WATER 250 ML IV PRN (09:07)
[2018-10-15] MEDS: MORPHINE SULFATE 10 MG/ML INJ IV PRN (09:08)
[2018-10-15] MEDS ORDERED: ERTAPENEM SODIUM 1 GM in NORMAL SALINE 50 ML IV PRN (09:08)
[2018-10-15] MEDS ORDERED: FUROSEMIDE INJ/PF 40 MG/4 ML SDV IV PRN (09:09)
--- NOTE | 2018-10-15 09:15 | RADIOLOGY REPORT (SQ) ---
EXAM DESCRIPTION: CT ABD/PELVIS WITH IV ONLY COMPLETED DATE/TIME: 10/15/2018 8:45 am REASON FOR STUDY: post op SBO COMPARISON: CT abdomen pelvis 10/04/2018 KUB 10/12/2018 Chest films 10/13/2018 CT chest same date TECHNIQUE: CT scan of the abdomen and pelvis performed using helical scanning technique with dynamic intravenous contrast injection. No oral contrast. Images reviewed with lung, soft tissue, and bone windows. Reconstructed coronal and sagittal MPR images reviewed. Delayed images for evaluation of the urinary system also acquired. All images stored on PACS. All CT scanners at this facility use dose modulation, iterative reconstruction, and/or weight based d osing when appropriate to reduce radiation dose to as low as reasonably achievable (ALARA). [facility]: Dose Right [facility]: CareDose [facility]: Dose Right [facility]: Teradose 4D [facility]: [employer] CONTRAST TYPE AND DOSE: contrast/concentration: Isovue 350.00 mg/ml; Total Contrast Delivered: 66.0 ml; Total Saline Delivered: 65.0 ml RENAL FUNCTION: Creatinine 0.7 RADIATION DOSE: CT Rad equipment meets quality standard of care and radiation dose reduction techniq ues were employed. CTDIvol: 9.9 - 13.8 mGy. DLP: 1245 mGy-cm.. LIMITATIONS: None. FINDINGS: Along the right flank, an intraperitoneal abscess is present with thin peripheral rim enha ncement, measuring 15 cm craniocaudad by 11 cm AP x 5 cm transverse. In the left lower quadrant, a intraperitoneal abscess is present with thin peripheral rim enhancement , measuring 20 cm craniocaudad x 5 cm AP x 13 cm transverse. In the pelvic cul-de-sac, and intraperitoneal abscess present within peripheral rim enhancement, fernando uring 3 cm craniocaudad x 10 cm transverse x 4 cm AP. These findings were discussed with Dr. Neal and Dr. Bradford, 0845 hours, 10/15/2018. These abscess es would be amenable to percutaneous drainage (most recent INR 10/09/2018 1.33, platelets today 105). LOWER CHEST: Bilateral lower lobe collapse and consolidation with trace pleural effusions. LIVER: Normal size. No masses. No dilated ducts. SPLEEN: Normal size. No focal lesions. PANCREAS: No masses. No significant calcifications. No adjacent inflammation or peripancreatic fluid collections. Pancreatic duct not dilated. GALLBLADDER: Calcified stones in the gallbladder. No gross gallbladder wall thickening. ADRENAL GLANDS: No significant masses or asymmetry. RIGHT KIDNEY AND URETER: No solid masses. No significant calcifications. No hydronephrosis or hyd roureter. LEFT KIDNEY AND URETER: No solid masses. No significant calcifications. No hydronephrosis or hydr oureter. AORTA AND VESSELS: No aneurysm. No dissection. Renal arteries, SMA, celiac without stenosis. RETROPERITONEUM: No retroperitoneal adenopathy, hemorrhage or masses. BOWEL AND PERITONEAL CAVITY: Large intraperitoneal abscesses are present. Post right hemicolectomy w ith surgical ria on axial images 42-47. No CT evidence of bowel obstruction. No dilated small b owel loops. APPENDIX: Surgically absent PELVIS: Pelvic cul-de-sac abscess, 10 x 3 x 4 cm in size. ABDOMINAL WALL: Anterior abdominal wall skin ria. No ventral hernia BONES: No significant or acute findings. OTHER: No other significant finding. IMPRESSION: Intra-abdominal and pelvic abscesses. Findings called to the attending physicians as ab ove. TECHNICAL DOCUMENTATION: JOB ID: [id number] Quality ID # 436: Final reports with documentation of one or more dose reduction techniques (e.g., Au tomated exposure control, adjustment of the mA and/or kV according to patient size, use of iterative reconstruction technique) 2010 [employer]- All Rights Reserved Reading location - IP/workstation name: [email or web address]
[2018-10-15 09:58] LABS: PARTIAL THROMBOPLASTIN TIME 39.1 SEC (23.5-35.8); PROTHROMBIN TIME 18.8 SEC (11.4-15.4)
[2018-10-15] MEDS ORDERED: LEVOFLOXACIN 750 MG/D5W RTU 750 MG/150 ML RTUPB IV SCH (10:00)
[2018-10-15 10:01] LABS: APPEARANCE,URINE CLEAR; BILIRUBIN,URINE NEGATIVE (NEGATIVE); COLOR,URINE YELLOW; GLUCOSE, URINE NEGATIVE (NEGATIVE); KETONES,URINE NEGATIVE (NEGATIVE); LEUKOCYTE ESTERASE,URINE NEGATIVE (NEGATIVE); NITRITE,URINE NEGATIVE (NEGATIVE); PROTEIN,URINE NEGATIVE (NEGATIVE); UROBILINOGEN,URINE NEGATIVE mg/dL (<2.0)
[2018-10-15 10:04] LABS: ARTERIAL BLOOD BASE EXCESS -2.5 mmol/L; ARTERIAL BLOOD H2CO3 0.82 mmol/L (1.05-1.35); ARTERIAL BLOOD O2 SATURATION 95.9 % (94-98); ARTERIAL BLOOD PCO2 27.1 mmHg (35-45); ARTERIAL BLOOD PH 7.49 (7.35-7.45); ARTERIAL BLOOD PO2 72.5 mmHg (80-100); ARTERIAL BLOOD TOTAL CO2 20.9 mmol/L (21-25)
[2018-10-15 10:06] LABS: ARTERIAL BLOOD FIO2 15L
[2018-10-15] MEDS: FUROSEMIDE INJ/PF 40 MG/4 ML SDV IV SCH (10:27)
[2018-10-15] MEDS: POTASSIUM CHLORIDE 20 MEQ/50 ML RTU IV SCH ×4 (10:30→16:00)
[2018-10-15] MEDS ORDERED: SUCCINYLCHOLINE CHLORIDE INJ 200 MG/10 ML VIAL ONE (10:39)
[2018-10-15] MEDS ORDERED: VANCOMYCIN HCL 1,000 MG in DEXTROSE 5%-WATER 250 ML IV SCH (11:15)
[2018-10-15] MEDS: FAMOTIDINE 20 MG TABLET PO SCH ×2 (11:22→21:13)
[2018-10-15] MEDS ORDERED: ACETAMINOPHEN 1,000 MG/100 ML RTUPB IV PRN (11:27)
[2018-10-15] MEDS ORDERED: NORMAL SALINE 500 ML IV ONE (12:00)
[2018-10-15] MEDS ORDERED: NORMAL SALINE 1000 ML 1,000 ML IV PRN (12:00)
[2018-10-15] MEDS ORDERED: PHENYLEPHRINE HCL INJ/PF 10 MG/1 ML SDV ONE ×2 (12:41→18:37)
[2018-10-15] MEDS ORDERED: PROPOFOL 1,000 MG/100 ML INFUS..BTL IV ONE (12:42)
[2018-10-15] MEDS ORDERED: EPINEPHRINE INJ 1 MG/10 ML DISP.SYRIN ONE (12:46)
[2018-10-15] MEDS ORDERED: POTASSI CL 20 MEQ/50 ML RIDER 20 MEQ/50 ML RTUPB IV SCH (13:00)
[2018-10-15] MEDS ORDERED: MIDAZOLAM HCL 50 MG/100 ML RTUINJ ONE (13:13)
--- NOTE | 2018-10-15 13:55 | RADIOLOGY REPORT (SQ) ---
EXAM DESCRIPTION: CHEST SINGLE VIEW COMPLETED DATE/TIME: 10/15/2018 1:45 pm REASON FOR STUDY: ET AND NGT PLACEMENT COMPARISON: CT chest 10/15/2018, chest x-ray 10/13/2018. EXAM PARAMETERS: NUMBER OF VIEWS: One view TECHNIQUE: Single frontal radiograph of the chest. RADIATION DOSE: N/A LIMITATIONS: None. FINDINGS: TEMPORARY SUPPORT DEVICES:ETT in expected location. NG tube courses below the vannessa-diaphr agm in to the stomach. Central venous access catheter tip is in expected location. LUNGS AND PLEURA: There are bilateral airspace opacities, more confluent at the right perihilar regio n. There are small bilateral pleural effusions. No pneumothorax. MEDIASTINUM AND HILAR STRUCTURES: Stable. HEART AND VASCULAR STRUCTURES: The heart is not enlarged. There is no overt vascular congestion. BONES: No acute findings. IMPRESSION: 1. Bilateral airspace opacities, more confluent at the right perihilar region, suggesti ve of multifocal pneumonia. Small bilateral pleural effusions. 2. Support devices in expected locations. TECHNICAL DOCUMENTATION: JOB ID: [id number] [place]-64 2010 [employer]- All Rights Reserved Reading location - IP/workstation name: [email or web address]
--- NOTE | 2018-10-15 15:54 | RADIOLOGY REPORT (SQ) ---
EXAM DESCRIPTION: CT GUIDED PERCUT DRAIN W/CATH COMPLETED DATE/TIME: 10/15/2018 3:33 pm REASON FOR STUDY: abscess COMPARISON: CT abdomen with IV contrast dated 10/15/2018. SENIOR MEDIA BUYER: Kaiden Alvarenga PA-C SUPERVISING PHYSICIAN: Shiv Dukes MD FLUOROSCOPY TIME: CT Fluoroscopy: 32 seconds 4CT fluoroscopic images were obtained and saved to PACS. RADIATION DOSE: CT Rad equipment meets quality standard of care and radiation dose reduction techniq ues were employed. CTDIvol: 4.0 - 18.1 mGy. DLP: 1248 mGy-cm. mGy. LIMITATIONS: None. PROCEDURE: After obtaining informed consent, the patient was brought to the CT suite and was placed supine on the CT gurney. The patient was prepped and draped in the usual sterile fashion . Axial caity ges were obtained for targeting of the left lower quadrant abscess and right flank abscess. Patient is intubated. She is currently on propofol drip.The total sedation time was continuous. Documentation face to face time, the performing proceduralist, spent monitoring the patient: 35 naun pricila. After localization of appropriate spot on the lateral left lower quadrant abscess, lidocaine was then used for local anesthesia. Under CT guidance an 18 gauge needle was inserted into the left abscess thin brown malodorous fluid obtained. Sample was sent to the lab for analysis. A wire was then coil ed into the left lower quadrant abscess. After sequential dilatation a 12 Guamanian pigtail drainage ca theter was then placed. The catheter was then connected to drainage. Follow-up imaging demonstrates the catheter to be in good position. After localization of appropriate spot on the lateral right fl ank, lidocaine was then used for local anesthesia. Under CT guidance an 18 gauge needle was inserted into the right flank space thin brown malodorous fluid obtained. Sample was sent to the lab for robbie lysis. A wire was then coiled into the abscess . After sequential dilatation a [address] toth catheter was then placed. The catheter was then connected to drainage. Follow-up imaging dem onstrates the catheter to be in good position. The patient tolerated procedure well left the CT suit e in stable condition FINDINGS: Thin brown malodorous fluid IMPRESSION: SUCCESSFUL CT GUIDED left lower quadrant drain placement and right flank drain placement . COMMENT: Patient medication list reviewed: Yes- PQRS [id number]:Eligible professional attests to document ing in the medical record they obtained, updated, or reviewed the patient's current medications. Quality ID 145: Final reports for procedures using fluoroscopy that document radiation exposure curly jose, or exposure time and number of fluorographic images (if radiation exposure indices are not avail able) TECHNICAL DOCUMENTATION: JOB ID: [id number] Quality ID # 436: Final reports with documentation of one or more dose reduction techniques (e.g., Au tomated exposure control, adjustment of the mA and/or kV according to patient size, use of iterative reconstruction technique) 2010 [employer]- All Rights Reserved Reading location - IP/workstation name: [email or web address]
[2018-10-15] MEDS ORDERED: NOREPINEPHRINE BITARTRATE INJ/PF 4 MG/4 ML SDV IV ONE ×3 (15:55→21:55)
[2018-10-15] MEDS ORDERED: VASOPRESSIN INJ 20 UNIT/1 ML VIAL ONE ×2 (16:03→21:56)
[2018-10-15] MEDS: DEXTROSE 5%-WATER 250 ML with VASOPRESSIN 100 UNIT IV PRN ×4 (16:04→22:07)
[2018-10-15] MEDS: DEXTROSE 5%-WATER 250 ML with NOREPINEPHRINE BITARTRATE 4 MG IV PRN ×4 (16:30→22:05)
[2018-10-15] MEDS: NORMAL SALINE 1000 ML 1,000 ML IV PRN ×2 (16:50→17:51)
[2018-10-15 16:54] LABS: ARTERIAL BLOOD BASE EXCESS -12.2 mmol/L; ARTERIAL BLOOD FIO2 100%; ARTERIAL BLOOD H2CO3 1.16 mmol/L (1.05-1.35); ARTERIAL BLOOD HCO3 14.9 mmol/L (20-24); ARTERIAL BLOOD O2 SATURATION 92.5 % (94-98); ARTERIAL BLOOD PCO2 38.6 mmHg (35-45); ARTERIAL BLOOD PO2 76.7 mmHg (80-100); ARTERIAL BLOOD TOTAL CO2 16.1 mmol/L (21-25)
[2018-10-15 17:10] LABS: HEMATOCRIT 25.2 % (36.0-47.0); HEMOGLOBIN 8.2 g/dL (12.0-15.5); MEAN CORPUSCULAR HEMOGLOBIN 26.3 pg (27.0-33.4); MEAN CORPUSCULAR HGB CONC 32.6 g/dL (32.0-36.0); MEAN CORPUSCULAR VOLUME 81 fl (80-97); RED BLOOD COUNT 3.12 10^6/uL (3.72-5.28); RED CELL DISTRIBUTION WIDTH 17.5 % (11.5-14.0); WHITE BLOOD COUNT 5.5 10^3/uL (4.0-10.5)
[2018-10-15] MEDS ORDERED: SODIUM BICARBONATE 8.4% INJ 50 MEQ/50 ML DISP.SYRIN ONE ×4 (17:11→19:13)
[2018-10-15] MEDS ORDERED: DEXTROSE 5%-WATER 1000 ML 1,000 ML with SODIUM BICARBONATE 150 MEQ IV PRN ×2 (17:19)
[2018-10-15 17:23] LABS: ANION GAP 8 (5-19); BLOOD UREA NITROGEN 18 mg/dL (7-20); CARBON DIOXIDE 16 mmol/L (22-30); CHLORIDE 111 mmol/L (98-107); GLUCOSE 100 mg/dL (75-110); SODIUM 134.9 mmol/L (137-145)
[2018-10-15 17:27] LABS: PLATELET COUNT 95 10^3/uL (150-450)
[2018-10-15 17:30] LABS: POTASSIUM 3.6 mmol/L (3.6-5.0)
[2018-10-15] MEDS ORDERED: SODIUM BICARBONATE 8.4% INJ 50 MEQ/50 ML DISP.SYRIN IV ONE (17:30)
[2018-10-15 17:31] LABS: ABSOLUTE LYMPHOCYTES# (MANUAL) 0.9 10^3/uL (0.5-4.7); ABSOLUTE MONOCYTES # (MANUAL) 0.6 10^3/uL (0.1-1.4); ABSOLUTE NEUTROPHILS# (MANUAL) 4.1 10^3/uL (1.7-8.2); BAND NEUTROPHILS % (MANUAL) 3 % (3-5); BASOPHILS % (MANUAL) 0 % (0-2); CALCIUM 6.2 mg/dL (8.4-10.2); EOSINOPHILS % (MANUAL) 0 % (0-6); LYMPHOCYTES % (MANUAL) 16 % (13-45); METAMYELOCYTES % (MANUAL) 2 % (0); MONOCYTES % (MANUAL) 10 % (3-13); SEGMENTED NEUTROPHILS % (MAN) 69 % (42-78); TOTAL CELLS COUNTED 100
[2018-10-15 17:34] LABS: ANISOCYTOSIS 1+; BURR CELLS 1+; HYPOCHROMASIA SLIGHT; PLATELET COMMENT DECREASED; PLATELET GIANT PRESENT; POIKILOCYTOSIS 1+
[2018-10-15 18:51] LABS: ARTERIAL BLOOD H2CO3 1.01 mmol/L (1.05-1.35); ARTERIAL BLOOD HCO3 8.5 mmol/L (20-24); ARTERIAL BLOOD O2 SATURATION 93.2 % (94-98); ARTERIAL BLOOD PCO2 33.5 mmHg (35-45); ARTERIAL BLOOD PO2 94.8 mmHg (80-100); ARTERIAL BLOOD TOTAL CO2 9.5 mmol/L (21-25)
[2018-10-15 18:52] LABS: ARTERIAL BLOOD FIO2 100%
[2018-10-15 18:53] LABS: ARTERIAL BLOOD PH 7.02 (7.35-7.45)
[2018-10-15] MEDS ORDERED: FENTANYL CITRATE INJ/PF 100 MCG/2 ML AMPUL ONE (18:53)
[2018-10-15 19:13] LABS: ALBUMIN 1.1 g/dL (3.5-5.0)
[2018-10-15 19:45] VITALS: BP 131/71
--- NOTE | 2018-10-15 20:04 | Progress Note ---
Provider Note Provider Note: CT of the chest positive for new bilateral upper lobe airspace disease worrisome for pneumonia CT of the abdomen positive for intra abdominal and pelvic abscesses patient underwent percutanous drainage by IR patient decompensated rapidly her respiratory and circulatory status deteriorated she was intubated by anaesthesia she was started on multiple pressors her MAP improved and we are weaning down pressors now pulse O2 is in 70s but PO2 is 95, likley due to peripheral vasoconstriction she is on FiO2 100, PEEP 12 PH is deteriorating from 7.2 to 7.0 we gave IV bicarb boluses and will started drip when available I had a family meeting with Family (sister and her boyfriend) in presence of Dr Bolaños I signed out to Dr Ibarra patient is in septic shock and respiratory failure continue IV broad spectrum antibiotics (vanco, invanz, levaquin) continue IV pressors and tutrate as tolerated continue IV fluids follow cultures from blood, sputum, wound, abdominal fluid, urine (ordered today) adjust vent setting to maximize oxygentaion and ventillation continue bicarb drip very poor prognosis, discussed with family discussed with attending physician Dr Mami Oliveira is out sick too unstable for transfer
[2018-10-15] MEDS ORDERED: DEXTROSE 5%-WATER 1000 ML 1,000 ML with SODIUM BICARBONATE 50 MEQ IV PRN ×2 (20:08)
--- NOTE | 2018-10-15 20:10 | Progress Note ---
Provider Note Provider Note: indications: accurate measurements of BP, frequent ABGs performed by Matt Bradford MD procedure summary: A time out was performed. My hands were washed immediately prior to the procedure. I wore a surgical cap, mask with protective eyewear, sterile gown and sterile gloves throughout the procedure. The R inguinal region was prepped using chlorhexidine scrub and draped in sterile fashion using a three quarter sheet drape and sterile towels. The femoral pulse was identified. Palpating the femoral pulse throughout the procedure, the introducer needle was inserted into the femoral artery. A guidewire was advanced through the needle into the femoral artery. The needle was exchanged over the wire for an arterial catheter. The wire was removed and the catheter was secured to the skin using a suture. The patient tolerated the procedure without any hemodynamic compromise. At time of procedure completion, the catheter was connected to the desk monitor and calibrated. Appropriate waveform and blood pressure tracing was observed.
[2018-10-15] MEDS ORDERED: METHYLPREDNISOLONE INJ 40 MG/1 ML SDV IV ONE (20:15)
[2018-10-15] MEDS ORDERED: FENTANYL CITRATE INJ/PF 250 MCG/5 ML AMPULE IV ONE (20:15)
--- NOTE | 2018-10-15 20:17 | PDOC PROGRESS REPORT ---
Subjective Progress Note for:: 10/15/18 Subjective:: Noted Pulse Ox desaturation with abdominal pains. Was in raped response and seen by hospitalist who ordered CT scan of chest,abdomen and pelvis. This showed pneumonia with intra-abdominal abscesses. Called by Mendoza Madrigal and agreed to have IR drain abscesses under CT guidance. Patient seen in icu and ordered intubation by COUNSELOR DORMITORY for respiratory distress then had CT guided drainage of abdominal abscess. Reason For Visit: RIGHT COLON CANCER Physical Exam Vital Signs: Temp Pulse Resp BP Pulse Ox 97.2 F 123 H 13 113/62 75 L 10/15/18 19:00 10/15/18 08:45 10/15/18 19:00 10/15/18 18:15 10/15/18 19:00 Intake & Output 10/14/18 10/15/18 10/16/18 06:59 06:59 06:59 Intake Total 2365 2964 50 Output Total 1225 Balance 2365 2964 -1175 Weight 60.5 kg 58.9 kg 62.1 kg Exam: Abdomen is distended with diffuse tenderness with small amount of foul smelling drainage at lower incision. A few ria removed and C/s obtained. Dry dressings placed done in ICU after intubation. Results Laboratory Results: 10/15/18 16:55 10/15/18 16:55 10/15/18 10/15/18 10/15/18 07:19 07:19 07:56 WBC 4.9 RBC 3.32 L Hgb 8.9 L Hct 26.1 L MCV 79 L MCH 26.9 L MCHC 34.3 RDW 16.8 H Plt Count 105 L Seg Neutrophils % Lymphocytes % Monocytes % Eosinophils % Basophils % Absolute Neutrophils Absolute Lymphocytes Absolute Monocytes Absolute Eosinophils Absolute Basophils Carbonic Acid 0.82 L HCO3/H2CO3 Ratio 24:1 ABG pH 7.49 H ABG pCO2 27.1 L ABG pO2 72.5 L ABG HCO3 20.0 ABG O2 Saturation 95.9 ABG Base Excess -2.5 FiO2 15L Sodium 135.4 L Potassium 2.4 L* Chloride 104 Carbon Dioxide 23 Anion Gap 8 BUN 19 Creatinine 0.66 Est GFR ( Amer) > 60 Est GFR (Non-Af Amer) > 60 Glucose 93 Lactic Acid Calcium 7.3 L Magnesium Albumin Urine Color Urine Appearance Urine pH Ur Specific [place] Urine Protein Urine Glucose (UA) Urine Ketones Urine Blood Urine Nitrite Ur Leukocyte Esterase Urine WBC (Auto) Blood Type Antibody Screen 10/15/18 10/15/18 10/15/18 08:04 08:04 09:24 WBC RBC Hgb Hct MCV MCH MCHC RDW Plt Count Seg Neutrophils % Lymphocytes % Monocytes % Eosinophils % Basophils % Absolute Neutrophils Absolute Lymphocytes Absolute Monocytes Absolute Eosinophils Absolute Basophils Carbonic Acid HCO3/H2CO3 Ratio ABG pH ABG pCO2 ABG pO2 ABG HCO3 ABG O2 Saturation ABG Base Excess FiO2 Sodium Potassium Chloride Carbon Dioxide Anion Gap BUN Creatinine Est GFR ( Amer) Est GFR (Non-Af Amer) Glucose Lactic Acid Cancelled 3.7 H Calcium Magnesium Albumin Urine Color YELLOW Urine Appearance CLEAR Urine pH 5.0 Ur Specific [place] 1.010 Urine Protein NEGATIVE Urine Glucose (UA) NEGATIVE Urine Ketones NEGATIVE Urine Blood NEGATIVE Urine Nitrite NEGATIVE Ur Leukocyte Esterase NEGATIVE Urine WBC (Auto) 1 Blood Type Antibody Screen 10/15/18 10/15/18 10/15/18 16:03 16:30 16:55 WBC 5.5 RBC 3.12 L Hgb 8.2 L Hct 25.2 L MCV 81 MCH 26.3 L MCHC 32.6 RDW 17.5 H Plt Count 95 L Seg Neutrophils % Not Reportable Lymphocytes % Not Reportable Monocytes % Not Reportable Eosinophils % Not Reportable Basophils % Not Reportable Absolute Neutrophils Not Reportable Absolute Lymphocytes Not Reportable Absolute Monocytes Not Reportable Absolute Eosinophils Not Reportable Absolute Basophils Not Reportable Carbonic Acid 1.16 HCO3/H2CO3 Ratio 12:1 ABG pH 7.20 L* ABG pCO2 38.6 ABG pO2 76.7 L ABG HCO3 14.9 L ABG O2 Saturation 92.5 L ABG Base Excess -12.2 FiO2 100% Sodium Potassium Chloride Carbon Dioxide Anion Gap BUN Creatinine Est GFR ( Amer) Est GFR (Non-Af Amer) Glucose Lactic Acid 5.1 H Calcium Magnesium Albumin Urine Color Urine Appearance Urine pH Ur Specific [place] Urine Protein Urine Glucose (UA) Urine Ketones Urine Blood Urine Nitrite Ur Leukocyte Esterase Urine WBC (Auto) Blood Type Antibody Screen 10/15/18 10/15/18 10/15/18 16:55 16:55 17:05 WBC RBC Hgb Hct MCV MCH MCHC RDW Plt Count Seg Neutrophils % Lymphocytes % Monocytes % Eosinophils % Basophils % Absolute Neutrophils Absolute Lymphocytes Absolute Monocytes Absolute Eosinophils Absolute Basophils Carbonic Acid HCO3/H2CO3 Ratio ABG pH ABG pCO2 ABG pO2 ABG HCO3 ABG O2 Saturation ABG Base Excess FiO2 Sodium 134.9 L Potassium 3.6 D Chloride 111 H Carbon Dioxide 16 L Anion Gap 8 BUN 18 Creatinine 0.76 Est GFR ( Amer) > 60 Est GFR (Non-Af Amer) > 60 Glucose 100 Lactic Acid Calcium 6.2 L* Magnesium 1.9 Albumin 1.1 L Urine Color Urine Appearance Urine pH Ur Specific [place] Urine Protein Urine Glucose (UA) Urine Ketones Urine Blood Urine Nitrite Ur Leukocyte Esterase Urine WBC (Auto) Blood Type O POSITIVE Antibody Screen NEGATIVE 10/15/18 18:39 WBC RBC Hgb Hct MCV MCH MCHC RDW Plt Count Seg Neutrophils % Lymphocytes % Monocytes % Eosinophils % Basophils % Absolute Neutrophils Absolute Lymphocytes Absolute Monocytes Absolute Eosinophils Absolute Basophils Carbonic Acid 1.01 L HCO3/H2CO3 Ratio 8:1 ABG pH 7.02 L* ABG pCO2 33.5 L ABG pO2 94.8 ABG HCO3 8.5 L ABG O2 Saturation 93.2 L ABG Base Excess -21.0 FiO2 100% Sodium Potassium Chloride Carbon Dioxide Anion Gap BUN Creatinine Est GFR ( Amer) Est GFR (Non-Af Amer) Glucose Lactic Acid Calcium Magnesium Albumin Urine Color Urine Appearance Urine pH Ur Specific [place] Urine Protein Urine Glucose (UA) Urine Ketones Urine Blood Urine Nitrite Ur Leukocyte Esterase Urine WBC (Auto) Blood Type Antibody Screen Impressions: KUB X-Ray 10/12/18 00:00 IMPRESSION: Nonobstructive bowel gas pattern Abdomen/Pelvis CT 10/15/18 00:00 IMPRESSION: Intra-abdominal and pelvic abscesses. Findings called to the attending physicians as above. Chest CT 10/15/18 00:00 IMPRESSION: Bilateral lower lobe collapse and consolidation, right middle lobe collapse and consolidation Trace bilateral pleural effusions New bilateral upper lobe airspace disease worrisome for pneumonia Chest X-Ray 10/15/18 00:00 IMPRESSION: 1. Bilateral airspace opacities, more confluent at the right perihilar region, suggestive of multifocal pneumonia. Small bilateral pleural effusions. 2. Support devices in expected locations. Percutaneous Drainage 10/15/18 00:00 IMPRESSION: SUCCESSFUL CT GUIDED left lower quadrant drain placement and right flank drain placement. Assessment & Plan - Time Time Spent with patient: 25-34 minutes - Inpatient Certification Medical Necessity: Need Close Monitoring Due to Risk of Patient Decompensation, Need For IV Fluids, Need For Continuous Telemetry Monitoring, Need for IV Antibiotics - Plan Summary Plan Summary: Patient unstable condition in ICU managed with the Hospitalist. Also had a long talk with daughter and sister. Later conference with pt's sister and with the Hospitalist. We explained to family the seriousness of the situation. Sister would like patient on Full Code. Patient on 3 pressors ,Hco3 drip !00 % 02 with 10 of PEEp. Patient is very critical
[2018-10-15] MEDS ORDERED: PROPOFOL 1,000 MG/100 ML INFUS..BTL IV PRN (20:51)
[2018-10-15] MEDS ORDERED: FENTANYL CITRATE/PF 600 MCG/60 ML BAG IV PRN (21:03)
[2018-10-15] MEDS ORDERED: POTASSI CL 20 MEQ/50 ML RIDER 20 MEQ/50 ML RTUPB IV ONE (21:10)
[2018-10-15] MEDS ORDERED: DEXTROSE 5%-WATER 250 ML with PHENYLEPHRINE HCL 40 MG IV PRN ×2 (21:23)
[2018-10-15] MEDS ORDERED: NORMAL SALINE 1000 ML 1,000 ML IV ONE (21:30)
[2018-10-15] MEDS ORDERED: MIDAZOLAM HCL 50 MG/100 ML RTUINJ IV PRN (21:59)
[2018-10-15] MEDS ORDERED: VANCOMYCIN HCL 500 MG in DEXTROSE 5%-WATER 100 ML IV SCH (22:00)
--- NOTE | 2018-10-16 00:14 | Progress Note ---
Provider Note Provider Note: Critical Care: Code Blue: @23:04 10/15/18 Patient septic with hypotension (shock) developed sudden cardiac arrest (Fl atline). No response to ACLS techniques and treatments. Remained flatline until efforts discontinued at 23:24. Total critical care time 20 minutes.
[2018-10-16] MEDS ORDERED: METHYLPREDNISOLONE INJ 40 MG/1 ML SDV IV SCH (03:00)
[2018-10-16] MEDS ORDERED: ERTAPENEM SODIUM 1 GM in NORMAL SALINE 50 ML IV SCH (10:00)
--- NOTE | 2018-11-06 10:47 | DEATH SUMMARY E ---
Summary NAME: CLAUDETTE ELI : 1955 AGE: 63Y ADMITTED: 10/04/2018 : 10/15/2018 FINAL DIAGNOSES: 1. Carcinoma of the cecum. 2. History of diarrhea. 3. Weight loss due to nausea and vomiting. 4. Constipation. 5. Chronic obstructive pulmonary disease with respiratory failure and pneumonia. 6. Intra-abdominal abscesses with septic shock. PROCEDURES: 1. On 10/05/2018, one central line placement. 2. Colonoscopy. 3. Right hemicolectomy, surgeon Dr. Vizcaino 4. On 10/15/2018, intubation by [employer]. 5. On 10/15/2018, percutaneous drainage of intra-abdominal abscesses by interventional radiologist. HOSPITAL COURSE: This is a 63-year-old female with history of a few months of diarrhea, then nausea and vomiting for a month with constipation. The patient was admitted for abdominal pains and nausea and vomiting 10/04/2018. CT scan of the abdomen and pelvis on admission showed a partially obstructing cecal mass. On 10/05/2018, the patient underwent central line placement along with colonoscopy and right hemicolectomy by Dr. Vizcaino. On 10/06/2018, the first postop day, the patient was stable. On 10/07/2018, the patient was started on TPN. On 10/08/2018, third postop day, started on clear liquids and a chest x-ray ordered by the oncologist, which showed bilateral effusions with bowel loop consolidation, which is due to consolidation atelectasis versus pneumonia. Her white count at the time was 4.2 with hemoglobin of 11.2, albumin 1.7 and prealbumin of less than 3.0. On the fourth postop day on 10/09/2018, the patient had some nausea and continued with clears and TPN with a white count 2.8. On 10/10/2018 or the fifth postop day, the patient had flatus and small amount of bowel movement. Her abdomen is soft with mild incisional tenderness. She was continued on clear liquids and TPN. On 10/11/2018 or the sixth postop day, her nausea resolved and felt much better. Abdomen was soft and nontender. However, her liver functions were elevated. The TPN at this point was stopped after discussion with the oncologist. On 10/12/2018 or seventh postop day, patient had nausea, vomiting, and abdominal distention with minimal incisional tenderness. KUB showed non-obstructed bowel gas pattern. On 10/13/2018 or eighth postop day, the patient denies any abdominal pains. Her abdomen was soft and nontender. Chest x-ray showed trace bilateral pleural effusions with airspace disease, right greater than left. On 10/14/2018 or nin postop day, hospitalist was consulted for respiratory difficulty. Her abdomen was noted to be soft and nontender. The patient noted to have fluid overload on clinical exam by the hospitalist and patient was placed on diuretics with slight improvement. On the postop day or 10/15/2018, the patient had a rapid response for respiratory failure. At that time, patient noted to have abdominal pains with drainage from the lower incision site for which CT scan of the abdomen was done, which showed intra-abdominal abscesses and patient subsequently transferred to ICU, was intubated, and percutaneous drainage of the abscesses was done by interventional radiologist. At this point, the patient was noted to be hypotensive with severe respiratory failure with arterial blood gases showing severe acidosis with a pH of 7.0 to 7.2. Her white count was 4.9 with 3 bands. Hemoglobin was 8.9. The patient was placed on sodium bicarb drip as well as with 3 pressors for septic shock. Conference with the family was done together with the hospitalist and surgicalist, telling them the gravity of the patient's condition and poor prognosis. The patient, later that day, was coded and did not respond to CPR and subsequently pronounced . The patient likely had hypotension and respiratory failure due to intra-abdominal abscesses as well as pneumonia. DICTATING PHYSICIAN: MARY ANNE BRIONES M.D. [id number] PHY#: [id number] ID: [id number] JOB#: [id number] ACCT: [id number] cc:MARY ANNE BRIONES M.D. >
== END 2018-10-15 23:24 | DRG 329 ==
LOC: ER 09:48 → EH 19:37 → 2N 21:50 → ICU 10-15 07:54
PROVIDERS: ADMIT Surgery; ATTEND Surgery
PROC: 0DTF0ZZ Resection of Right Large Intestine, Open Approach (ICD-10-PCS; principal; 2018-10-05 13:30)
PROC: 0DJD8ZZ Inspection of Lower Intestinal Tract, Via Natural or Artificial Opening Endoscopic (ICD-10-PCS; 2018-10-05 13:30)
PROC: 02HV33Z Insertion of Infusion Device into Superior Vena Cava, Percutaneous Approach (ICD-10-PCS; 2018-10-05 13:30)
PROC: 0BH17EZ Insertion of Endotracheal Airway into Trachea, Via Natural or Artificial Opening (ICD-10-PCS; 2018-10-15)
PROC: 5A1935Z Respiratory Ventilation, Less than 24 Consecutive Hours (ICD-10-PCS; 2018-10-15)
PROC: 04HK33Z Insertion of Infusion Device into Right Femoral Artery, Percutaneous Approach (ICD-10-PCS; 2018-10-15)
PROC: 0W9G30Z Drainage of Peritoneal Cavity with Drainage Device, Percutaneous Approach (ICD-10-PCS; 2018-10-15)
DX: C18.2 Malignant neoplasm of ascending colon (principal); J96.01 Acute respiratory failure with hypoxia; A41.9 Sepsis, unspecified organism; R65.21 Severe sepsis with septic shock; J18.9 Pneumonia, unspecified organism; K65.1 Peritoneal abscess; E87.1 Hypo-osmolality and hyponatremia; K56.600 Partial intestinal obstruction, unspecified as to cause; I50.9 Heart failure, unspecified; E87.6 Hypokalemia; D50.0 Iron deficiency anemia secondary to blood loss (chronic); R63.4 Abnormal weight loss; F17.210 Nicotine dependence, cigarettes, uncomplicated; Z68.25 Body mass index [BMI] 25.0-25.9, adult
CPT/HCPCS: 00790; 31500; 36415; 71045; 71250; 71260; 74018; 74177; 75989; 80048; 80053; 80076; 81001; 82040; 82378; 82607; 82728; 82746; 82803; 82962; 83540; 83550; 83605; 83690; 83735; 84100; 84134; 85025; 85027; 85045; 85610; 85730; 86850; 86900; 86901; 86920; 87040; 87070; 87075; 87077; 87086; 87186; 87205; 87493; 88112; 88305; 88309; 93005; 93010; 93306; 94002; 94640; 94799; 96361; 96365; 96366; 96375; 99285; C1729; C1751; C1892; J0131; J0171; J0330; J0694; J1100; J1170; J1335; J1439; J1642; J1815; J1885; J1940; J1956; J2060; J2250; J2270; J2370; J2405; J2550; J2704; J2765; J2920; J3010; J3370; J3480; J3490; J7030; J7040; J7050; J7060; P9047; S0028